=== PATIENT | female | born 1945 | race Caucasian/White ===

== ENCOUNTER 2020-03-05 21:01 | Emergency (ER) | payer MEDICARE, SELFPAY ==
--- NOTE | 2020-03-05 21:09 | PC.NURSE ---
nurse at bedside. pt via wc from registration. daughter at side.
[2020-03-05 21:22] VITALS: BP 173/86; PULSE 65; RESP 17; O2SAT 98; BMI 29.9
--- NOTE | 2020-03-05 21:34 | XR_ITS ---
PROCEDURE: XR LUMBAR SPINE MIN 4V CLINICAL INDICATION: PAIN Low back pain COMPARISON: CT CT ANGIOGRAM CHEST W CONTRAST from 06/30/2016 FINDINGS: No fracture or dislocation. No lytic or blastic change. There is normal mineralization. There is degenerative disc disease at L4-5 and L5-S1. There is 5 mm anterolisthesis of L3 on L4. Facet arthritic changes are present from L2-S1. There is mild thoracolumbar curvature convex left Other findings:Faint calcification noted in both upper quadrants and could be due to nephrolithiasis or vascular calcification. IMPRESSION: Degenerative changes lumbar spine as described above. Possible nephrolithiasis Dictated by: Celestino Mackay MD 03/06/2020 04:50 Celestino Mackay MD in [place] 03/06/2020 04:50
--- NOTE | 2020-03-05 21:34 | XR_ITS ---
PROCEDURE: XR TIBIA FIBULA LT 2V CLINICAL INDICATION: PAIN COMPARISON: No exams were available for comparison FINDINGS: No fracture or dislocation. No lytic or blastic change. There is normal mineralization. The joint spaces are well-preserved. No significant degenerative/arthritic changes. No erosive changes evident. Other findings:There are 2 well-circumscribed calcific densities at the tip of the medial malleolus consistent with old avulsion fracture or ununited ossification center. IMPRESSION: No acute findings. Dictated by: Celestino Mackay MD 03/06/2020 04:46 Celestino Mackay MD in [place] 03/06/2020 04:46
--- NOTE | 2020-03-05 21:34 | XR_ITS ---
PROCEDURE: XR KNEE LT 3V CLINICAL INDICATION: PAIN Pain COMPARISON: CR XR TIBIA FIBULA LT 2V from 03/05/2020 FINDINGS: No fracture or dislocation. No lytic or blastic change. There is normal mineralization. The joint spaces are well-preserved. No significant degenerative/arthritic changes. No erosive changes evident. Other findings:There is an old avulsion fracture at the tip of the medial malleolus. IMPRESSION: No acute findings. Dictated by: Celestino Mackay MD 03/06/2020 04:45 Celestino Mackay MD in [place] 03/06/2020 04:45
--- NOTE | 2020-03-05 21:54 | HMH.EDLOEX ---
ED Disposition Clinical Impression: Lumbar radicular pain Knee pain, left Qualifiers: Chronicity: acute Qualified Code(s): M25.562 - Pain in left knee Disposition: Home, Self-Care Condition on Discharge: Good Instructions: DI for Lumbar Radiculopathy Additional Instructions: call dr schaefer in am for follow up Prescriptions: predniSONE [Prednisone 20mg Tab] 20 mg PO BID #10 tab Transmission Status: Pending to [id number] Referrals: Juan Schaefer MD [Primary Care Provider] - - Critical Care Critical Care Time: No Attestation: On 03/05/20, the high probability of a clinically significant, sudden or life threatening deterioration of the following system(s) required my full and direct attention, intervention and personal management. The time I documented below is in addition to time spent performing reported procedures but includes the following listed in this critical care notation. Medical Decision Making - Medical Records Medical records reviewed: Yes: I reviewed the patient's medical records. - Emanuel Inquiry Pt receiving controlled substance: No Vital Signs: 03/05/20 21:22 03/05/20 22:03 03/05/20 22:39 Temperature 98.3 F Temperature Source Oral Pulse Rate 62 Pulse Rate [Right Brachial] 65 62 Respiratory Rate 17 16 17 Blood Pressure 151/87 H Blood Pressure [Right Arm] 173/86 H 154/82 H Blood Pressure Mean [Right Arm] 115 106 Blood Pressure Source Automatic Cuff Blood Pressure Source [Right Arm] Automatic Cuff Automatic Cuff Blood Pressure Position Sitting Blood Pressure Position [Right Arm] Sitting Sitting 02 Sat by Pulse Oximetry 98 96 Oxygen Delivery Method Room Air Room Air Room Air - Lab Data Lab results reviewed: Yes: I reviewed the patient's lab results. Lab Results 03/05/20 21:40: WBC 7.5, RBC 4.69, Hgb 14.3, Hct 44.4, MCV 94.7, MCH 30.6, MCHC 32.3, RDW 13.1, Plt Count 296, MPV 7.7, Neut % (Auto) 56.9, Lymph % (Auto) 30.4, [place] % (Auto) 6.6, Eos % (Auto) 5.6, Baso % (Auto) 0.5, Neut # (Auto) 4.3, Lymph # (Auto) 2.3, [place] # (Auto) 0.5, Eos # (Auto) 0.4, Baso # (Auto) 0.0, ESR 17 03/05/20 21:40: Sodium 138, Potassium 4.1, Chloride 102, Carbon Dioxide 25, Anion Gap 15.1 H, BUN 18 H, Creatinine 1.00, Estimated Creat Clear 63, Estimated GFR 54 L, Est GFR ( Amer) 65, Glucose 108 H, Calcium 10.0, Total Bilirubin 0.7, AST 31, ALT 17, Alkaline Phosphatase 55, C-Reactive Protein 3.4, Total Protein 7.7, Albumin 4.5, Globulin 3.2, Albumin/Globulin Ratio 1.4 Result diagrams: 03/05/20 21:40 03/05/20 21:40 Orders (Tests/Meds): ED MEDICATIONS Discontinued Medications Generic Name Dose Route Start Last Admin Trade Name Freq PRN Reason Stop Dose Admin Ketorolac Tromethamine 30 mg 03/05/20 21:39 03/05/20 21:42 Ketorolac 30mg/Ml Vial IV 03/05/20 21:40 30 mg ONCE ONE Administration Methylprednisolone Sodium Succinate 125 mg 03/05/20 21:45 03/05/20 21:48 Methylprednisolone Sod Succ 125mg Vial IV 03/05/20 21:46 125 mg ONCE ONE Administration ORDERS Category Date Time Status XR knee LT 3V Stat Exams 03/05/20 21:34 Taken XR lumbar spine min 4V Stat Exams 03/05/20 21:34 Taken XR tibia fibula LT 2V Stat Exams 03/05/20 21:34 Taken - Radiology Data #1 Image(s): L-Spine, Knee, Tib/Fib Image Reviewed: Yes I reviewed the patient's radiology image Preliminary Findings: No Fracture Seen (djd changes ) Lower Extremity Injury HPI - General Chief Complaint: Extremity Injury, Lower Stated Complaint: L Leg pain, has gotten worse Time Seen by Provider: 03/05/20 21:45 Mode of Arrival: Wheelchair Source of Information: Patient, Relative, Medical Record Limitations: No Limitations Description of Symptoms (Recalled from ER Triage Doc. by RN): PATIENT REPORTS LEFT KNEE PAIN THAT RADIATES DOWN HER NOLASCO AND UP HER THIGH. PAIENT REPORTS SHE HAS HAD THIS PAIN OFF AND ALL SINCE THE SUMMER BUT IT HAS GOTTEN SEVERE WITHIN THE LAST
[2020-03-05 21:57] LABS: Basophils % 0.5 % (0.1-2.0); Chloride 102 mmol/L (98-107); Eosinophils # 0.4 K/mm3 (0.0-0.4); Eosinophils % 5.6 % (0.1-12.0); Hematocrit 44.4 % (37.0-47.0); Hemoglobin 14.3 g/dL (12.2-16.2); Lymphocytes # 2.3 K/mm3 (0.7-4.5); Lymphocytes % 30.4 % (10-50); Mean Corpuscular HGB Conc 32.3 g/dL (31.8-35.4); Mean Corpuscular Hemoglobin 30.6 pg (27.0-31.2); Mean Corpuscular Volume 94.7 fl (81-99); Mean Platelet Volume 7.7 fl (7.4-10.4); Monocytes # 0.5 K/mm3 (0.1-1.0); Monocytes % 6.6 % (1.7-9.3); Neutrophils # 4.3 K/mm3 (1.8-7.8); Neutrophils % 56.9 % (37.0-80.0); Platelet Count 296 K/mm3 (142-424); Red Blood Count 4.69 M/mm3 (4.20-5.40); Red Cell Distribution Width 13.1 % (11.5-17.5); White Blood Count 7.5 K/mm3 (4.8-10.8)
[2020-03-05 21:58] LABS: Potassium 4.1 mmoL/L (3.5-5.1); Sodium 138 mmol/L (136-145)
[2020-03-05 22:00] LABS: Alanine Aminotransferase 17 U/L (12-78); Alkaline Phosphatase 55 U/L (38-126); Anion Gap 15.1 mEq/L (5-15); Aspartate Amino Transferase 31 U/L (14-36); Bilirubin,Total 0.7 mg/dl (0.2-1.3); Blood Urea Nitrogen 18 mg/dl (7-17); Carbon Dioxide 25 mmol/L (22.0-30.0); Creatinine Clearance Estimated 63 mL/min (50-200); Estimated Glomerular Filt Rate 54 ml/min (>60); GFR (African American) 65 ML/MIN (>60)
[2020-03-05 22:01] LABS: Albumin Level 4.5 g/dl (3.5-5.0); Albumin/Globulin Ratio 1.4 (1.1-1.8); Globulin 3.2 g/dL (1.3-3.2); Glucose 108 mg/dl (74-100); Total Protein,Serum 7.7 g/dl (6.3-8.2)
[2020-03-05 22:03] VITALS: BP 154/82; PULSE 62; RESP 16; O2SAT 96
[2020-03-05 22:06] LABS: C-Reactive Protein 3.4 mg/L (0-4)
[2020-03-05 22:25] LABS: Erythrocyte Sedimentation Rate 17 mm/hr (0-30)
[2020-03-05 22:39] VITALS: BP 151/87; PULSE 62; RESP 17; TEMP 36.8; O2SAT 96
== END 2020-03-05 22:53 | disposition home or self-care (01) ==
PROVIDERS: Emergency Provider Emergency Medicine; PCP Internal Medicine Adolescent Medicine
DX: M54.16 Radiculopathy, lumbar region (principal); M25.562 Pain in left knee
CPT/HCPCS: 72110; 73562; 73590; 80053; 85025; 85651; 86140; 96374; 96375; 99283

== ENCOUNTER → 2020-03-08 10:38 | Outpatient (CLI) | payer MEDICARE, SELFPAY ==
--- NOTE | 2020-03-08 10:46 | MR_ITS ---
PROCEDURE: MR LUMBAR SPINE WO CON CLINICAL INDICATION: LEFT SIDED LOW BACK PAIN Severe left-sided low back pain radiating into the left leg COMPARISON: CR XR LUMBAR SPINE MIN 4V from 03/05/2020 TECHNIQUE: Standard multiplanar multiecho sequences are performed without contrast. 3-D MIP and myelographic images are also rendered and reviewed FINDINGS: There is normal alignment. The spinal cord ends at the L1-L2 level. T12-L1: Minimal bulging disc. L1-L2: There is degenerative disc disease with bulging disc and a small broad-based central disc protrusion along with facet and ligamentum hypertrophy causing mild bilateral lateral recess narrowing and mild bilateral foraminal narrowing. L2-L3: Degenerative disc disease with bulging disc along with moderate to severe facet and ligamentum hypertrophy with severe bilateral lateral recess narrowing moderate right and mild left foraminal narrowing with canal stenosis. A Schmorl's node is present along the superior endplate of L3. L3-L4: 5 mm anterolisthesis of L3 with bulging disc and facet and ligamentum hypertrophy with severe bilateral lateral recess narrowing and moderate to severe bilateral foraminal narrowing with canal stenosis. L4-5: Degenerative disc disease with bulging disc which is eccentric toward the right. There is mild right foraminal narrowing. There is moderate to severe left-sided foraminal narrowing. L5-S1: Mild degenerative disc disease with mild bulging disc and facet hypertrophic change with mild bilateral foraminal narrowing. Incidental note is made of a prominent bilateral renal pelvis right greater than left. IMPRESSION: Multilevel lumbar spondylosis as detailed above with bulging disc, degenerative disc disease, facet and ligamentum hypertrophy with varying degrees of lateral recess and foraminal narrowing and canal stenosis. Please see above for detailed description at each level. Dictated by: Celestino Mackay MD 03/08/2020 13:45 Celestino Mackay MD in [place] 03/08/2020 13:45
== END ==
PROVIDERS: PCP Internal Medicine Adolescent Medicine; Visit Provider Internal Medicine Adolescent Medicine
DX: M54.42 Lumbago with sciatica, left side (principal)
CPT/HCPCS: 72148; 76376

== ENCOUNTER → 2020-03-26 08:50 | Outpatient (POV) | payer MEDICARE, SELFPAY ==
[2020-03-26 09:35] VITALS: BP 126/79; PULSE 67; RESP 18; TEMP 36.7; O2SAT 99; BMI 29.9
--- NOTE | 2020-03-26 09:39 | HMH.PMCON ---
Assessment and Plan (1) Degenerative disc disease Status: Chronic Qualifiers: Spinal region: lumbar Qualified Code(s): M51.36 - Other intervertebral disc degeneration, lumbar region Category: Medical (2) Lumbar radicular pain Status: Chronic Category: Medical Code(s): M54.16 - Radiculopathy, lumbar region - Assessment and plan all Dx Assessment and Plan for all problems:: We will schedule the patient for an L4-L5 lumbar epidural steroid injection for the radicular pain she is having on her left side. Patient has been instructed to call the office if she has any issues prior to her next appointment. I will follow-up with her after this reassess her symptoms at that time. Dr. Eaton has reviewed this note and agrees with this plan of care. This note was dictated using voice recognition software and may contain errors or omissions HPI - Data of Consult Consult date: 03/26/20 Requesting Physician: Natalie Peres APRN Primary Care Provider: Juan Schaefer MD - Consult Narrative Reason for consult: , Left leg pain History of present illness: Ms. Seaman is a 74 year old female who presents today for consultation in regard to her left leg pain. Patient has left leg pain radiating down to her foot. She is had this for several weeks however it is improving somewhat. She was on a short round of oral steroids which did help. Patient had an MRI showing ligamentum flavum hypertrophy along with severe foraminal stenosis on the left side at L4-L5. Patient and I discussed epidural injection she would like to move forward with this. Patient has tried and failed medications, anti-inflammatories. Patient potentially could be a minimally invasive lumbar decompression candidate to we discussed this briefly. She would like to see how she does with this epidural injection and then decide. I do believe that is appropriate. Patient is not on any anticoagulation therapy. She rates her pain today a 5 out of 10. CC: Natalie Peres APRN [facility] History I have reviewed the patient's past medical history: Yes *Have you ever received a pneumonia vaccine?: Yes *Have you received a flu vaccine this season?: Yes - *Social History *Occupational Status:: retired *Travel in the last 8 weeks: None Family Hx:: No significant family history, Non-contributory Review of Systems - Review of Systems ROS General: no recent weight change, no fever, no sleep disturbances Respiratory: no cough, no shortness of air, no recurring pulmonary infections Cardiovascular/Peripheral Vascular: No chest pain, No palpitations, no edema, no shortness of breath. Gastrointestinal: no new onset incontinence, normal bowel movements reported Genitourinary: no new onset incontinence Musculoskeletal: left leg pain Psychiatric: normal mood/ affect Neurological: [denies new onset weakness in extremities], [denies new onset balance issues] Meds Home Medications Medication Instructions Recorded Confirmed Type Bisoprolol/Hydrochlorothiazide 1 each PO DAILY 03/26/20 03/26/20 History [Bisoprolol-Hctz 2.5-6.25 mg Tb] Calcium Carbonate [Calcium] 500 mg PO DAILY 03/26/20 03/26/20 History D3/Red Wine/Resveratrol/Malt 1,000 iunits PO DAILY 03/26/20 03/26/20 History [Super-D3+ Softgel] Levothyroxine Sodium 50 mcg PO DAILY 03/26/20 03/26/20 History [Levothyroxine 50mcg (0.05mg) Tab] Loratadine 10 mg PO DAILY 03/26/20 03/26/20 History Losartan/Hydrochlorothiazide 1 each PO DAILY 03/26/20 03/26/20 History [Losartan-Hctz 50-12.5 mg Tab] Multivitamin [Multi-Vitamin Plain] 0 each PO DAILY 03/26/20 03/26/20 History [place]-3S/Dha/Epa/Fish Oil [Fish 1 each PO DAILY 03/26/20 03/26/20 History Oil 1,000 mg Softgel] Vitamin B Complex [B Complex] 1 each PO DAILY 03/26/20 03/26/20 History Allergies Allergy/AdvReac Type Severity Reaction Status Date / Time No Known Allergies Allergy Verified 03/26/20 11:25 Objective Brice
== END ==
PROVIDERS: PCP Internal Medicine Adolescent Medicine; Visit Provider Clinical Nurse Specialist Family Health
DX: M51.16 Intervertebral disc disorders with radiculopathy, lumbar region (principal)
CPT/HCPCS: 99202

== ENCOUNTER → 2020-03-30 10:49 | Day surgery (SDC) | payer MEDICARE, SELFPAY ==
[2020-03-30 11:48] VITALS: BP 155/76; PULSE 64; RESP 18; TEMP 36.1; O2SAT 99; BMI 29.9
[2020-03-30 12:09] VITALS: BP 125/88; PULSE 85; RESP 18
--- NOTE | 2020-03-30 12:18 | HMH.PMPROC ---
- Procedure Date: 03/30/20 Time: 12:18 Anesthesiologist:: Matteo Eaton MD Complications:: None Pre-procedure Diagnosis:: Degenerative disc disease of lumbar spine with lumbar radiculopathy symptoms Post-procedure Diagnosis:: Same Indications for Procedure:: This patient is a pleasant 74-year-old white female who we are treating for low back pain with lumbar radicular symptoms. Most of her pain is in the low back radiating to the left leg. She has pain all the way down to her left knee. She did have pain all the way to her left gant however it is localized now to the knee area. We will do a lumbar pleural steroid injection today to see if this helps take care of her pain symptoms. Procedure Details:: Lumbar epidural steroid injection under fluoroscopy Informed consent was obtained and the risk and benefits of the procedure was explained to the patient. The patient was taken to the procedure room. The patient was placed prone on the procedure table. The patient was prepped and draped in sterile fashion. C-arm fluoroscopy was used to view the lumbar spine. Skin and subcutaneous tissues were anesthetized using lidocaine. I placed an 18-gauge epidural needle and advanced into the L4-L5 interspace using fluoroscopic guidance and [id number] to air. After confirmation of needle placement in the epidural space with dye I injected 2 mL of lidocaine 1.5% with Depo-Medrol 80 mg. Patient tolerated the procedure well with no complications. Plan and Disposition:: We will follow-up with her in 2 weeks. Will reevaluate symptoms at that time.
== END ==
PROVIDERS: PCP Internal Medicine Adolescent Medicine; Visit Provider Anesthesiology
DX: M51.16 Intervertebral disc disorders with radiculopathy, lumbar region (principal); I10 Essential (primary) hypertension; E03.9 Hypothyroidism, unspecified; Z87.39 Personal history of other diseases of the musculoskeletal system and connective tissue; Z79.899 Other long term (current) drug therapy
CPT/HCPCS: 62323; J1040; Q9966

== ENCOUNTER → 2020-04-19 09:09 | Outpatient (POV) | payer MEDICARE, SELFPAY ==
[2020-04-19 09:55] VITALS: BP 135/88; PULSE 85; RESP 18; TEMP 36.6; O2SAT 98; BMI 27.3
--- NOTE | 2020-04-19 10:08 | P.CONS_ITS ---
[facility] Pain Management SOAP Note Subjective:: Patient is a 74-year-old white female who presents today for follow-up after a lumbar epidural steroid injection. Patient has been having pain primarily in her low back with radiation into her left leg. The pain does go to her left knee. She says it has recently started traveling into the left gant area as well. She reports that she got 80% relief with her lumbar epidural steroid injection. She says that she only has pain with specific movements now. Her pain is a 2 out of 10 today. She is also taking diclofenac 75 mg 1 tablet p.o. twice daily that was prescribed by Dr. ANITA Olivares. Her last session of physical therapy is tomorrow. Patient says she has done well overall. Review of Systems General: No recent weight changes, no fever, no sleep disturbances Respiratory: No cough, no shortness of air, no recurring pulmonary infections Cardiovascular/peripheral vascular: No chest pain, no palpitations, no edema, no shortness of breath Gastrointestinal: No new onset incontinence, normal bowel movements reported Genitourinary: No new onset incontinence Musculoskeletal: Low back pain Psychiatric: Normal mood/affect Neurological: [Denies weakness in extremities], [denies balance issues] Objective:: Physical exam General: Alert and oriented x3, no acute distress, pleasant and cooperative, [on room air] Lungs: Respirations even and unlabored, symmetrical chest expansion Eyes: PERRL Musculoskeletal: Flexion and extension of lumbar spine somewhat guarded secondary to pain, deep tendon reflexes normal, strength in upper and lower extremities [5/5], [abnormal gait noted] Neurological: Speech clear, gluer and wedger equal, no gross sensory deficit Assessment:: Degenerative disc disease lumbar spine with lumbar radiculopathy symptoms Plan:: Overall, the patient is doing well following her injection. She would like to follow-up with us in 1 month for reevaluation of her symptoms. She has been instructed to contact clinic if she has any concerns before next appointment. The patient and I specifically discussed risk factors for COVID19. These risks include, but are not limited to age greater than 60, heart or lung disease, diabetes, immunosuppression, and travel. We also discussed NSAIDs may worsen COVID19 infection or symptoms. Patient should not use NSAIDs to treat COVID19 signs or symptoms. Patient was also informed that any type of corticosteroid of any form (oral or injection) will decrease the patient's immune system response and may increase the likelihood of COVID19 infection [address] symptoms[address]. Eaton has reviewed this note and agrees with this plan of care. This note was dictated using voice recognition software and make contain errors or omissions. [facility] History I have reviewed the patient's past medical history: Yes Medical History: Reports:: Hyperlipidemia, Hypertension Denies:: Cancer, Diabetes Mellitus Type 1, Diabetes Mellitus Type 2, MRSA, Seizures *Have you ever received a pneumonia vaccine?: Yes *Have you received a flu vaccine this season?: Yes Other Medical History: Reports: Hypothyroidism, Thyroid Disease Laterality Cases: Left: Lumpectomy Other Surgeries: Yes: Hysterectomy-Partial, Other (back surgery discectomy L4/5) Amputation: No Fractures: No - *Social History Alcohol Intake: never *Occupational Status:: other Housing: house Household Members: other *Travel in the last 8 weeks: None Family Hx:: No significant family history, Non-contributory
== END ==
PROVIDERS: PCP Internal Medicine Adolescent Medicine; Visit Provider Clinical Nurse Specialist Family Health
DX: M51.16 Intervertebral disc disorders with radiculopathy, lumbar region (principal)
CPT/HCPCS: 99212

== ENCOUNTER 2020-04-20 14:00 | Outpatient (RCR) | payer MEDICARE, SELFPAY ==
--- NOTE | 2020-03-15 18:18 | HMH.PTOPEV ---
PT Outpatient Evaluation Rehab PT Outpatient Evaluation Start: 03/15/20 17:02 Freq: Status: Active Protocol: Document 03/15/20 17:59 KRISTIN (Rec: 03/15/20 18:18 KRISTIN [id number]) Electronically Signed By Yeison Vilchis, PT 03/15/20 17:59 Outpatient Therapy Subjective History Subjective History Patient is a 74 year old female presenting to outpatient PT with reports of chronic LBP with BLE radicular symptoms L>R of insidious onset starting approximately 1 month ago. Symptom increased exponentially starting approximatley 2 weeks ago resulting in a visit to the ED . Main complaint is pain to the R knee, gant and foot. Most recent MRI indicates multi-level disc bulges, DDD and L 3/4 anterolisthesis. Patient reports hx of lumbar discectomy L4/5 approx 20 years ago. Other comorbidities include hx of HTN, R meniscus tear and mulitple abdominal surgeries. Chief Complaint Pain,Paresthesia,Weakness Symptom Type Ache,Throb,Dull Symptoms Relieved By Rest/Positioning,Heat,OTC Meds ,Prescription Meds Symptoms Aggravated By Standing,Bending/Stooping, Physical Activity,Walking, Lifting Prior Functional Limitations None Current Functional Limitations Housework,Standing,Squatting, Recreation Activity,Walking, Stairs,Balance,Bending/ Stooping Symptom Description Constant but Variable Level of pain today (0-10) 6 Pain scale - at its best (0-10) 6 Pain scale - at its worst (0-10) 10 Lumbopelvic Eval Posture Thoracic Spine Posture Standing Position Neutral Lumbar Spine Posture Standing Position Neutral Palapation tenderness bilateral buttock tenderness Yes: 2/4 Lumbar/Sacral Palpation Findings Tenderness Accessory Movement L2 bilateral L3 bilateral L4 bilateral L5 bilateral S1 bilateral Range of Motion Lumbar Spine Active Flexion Range of 82 Motion (degrees) Lumbar Spine Active Extension Range of 10
== END 2020-04-20 14:05 | disposition home or self-care (01) ==
LOC: PT 14:00
PROVIDERS: PCP Internal Medicine Adolescent Medicine; Visit Provider Internal Medicine Adolescent Medicine
DX: M54.42 Lumbago with sciatica, left side (principal)
CPT/HCPCS: 97010; 97012; 97014; 97035; 97110; 97163; 97535; G0283

== ENCOUNTER 2020-05-04 11:15 | Emergency (ER) | payer MEDICARE, SELFPAY ==
--- NOTE | 2020-05-04 11:11 | ECG_ITS ---
APPROVED REPORT Exam: Resting ECG HR:109 bpm ECG Measurements Heart Rate 109 AXES QRSd 82 QRS 51 QT 346 T 58 QTc 465 Conclusion Atrial fibrillation with rapid ventricular response Nonspecific ST abnormality Abnormal ECG Electronically signed by : Juan Schaefer, 05/04/2020 19:09:28
[2020-05-04 11:16] VITALS: BP 132/94; PULSE 170; RESP 18; TEMP 37; O2SAT 100; BMI 29.9
--- NOTE | 2020-05-04 11:19 | XR_ITS ---
PROCEDURE: XR CHEST PORTABLE CLINICAL HISTORY: CP Chest pain COMPARISON: CT CT ANGIOGRAM CHEST W CONTRAST from 06/30/2016 FINDINGS: The cardiomediastinal silhouette and pulmonary vascularity are within normal limits. The lungs are clear without infiltrates, suspicious nodules, or pleural effusions. No acute bony abnormalities. IMPRESSION: No acute findings. Dictated by: Celestino Mackay MD 05/04/2020 12:31 Celestino Mackay MD in [place] 05/04/2020 12:31
[2020-05-04 11:25] VITALS: BP 90/58; PULSE 167; O2SAT 100
[2020-05-04 11:31] LABS: Basophils # 0.1 K/mm3 (0-0.2); Basophils % 0.8 % (0.1-2.0); Eosinophils # 0.8 K/mm3 (0.0-0.4); Eosinophils % 8.6 % (0.1-12.0); Hematocrit 41.7 % (37.0-47.0); Hemoglobin 14.1 g/dL (12.2-16.2); Lymphocytes # 3.2 K/mm3 (0.7-4.5); Lymphocytes % 37.2 % (10-50); Mean Corpuscular HGB Conc 33.9 g/dL (31.8-35.4); Mean Corpuscular Hemoglobin 31.5 pg (27.0-31.2); Mean Corpuscular Volume 92.9 fl (81-99); Mean Platelet Volume 7.5 fl (7.4-10.4); Monocytes # 0.5 K/mm3 (0.1-1.0); Monocytes % 5.3 % (1.7-9.3); Neutrophils # 4.2 K/mm3 (1.8-7.8); Neutrophils % 48.1 % (37.0-80.0); Platelet Count 356 K/mm3 (142-424); Red Blood Count 4.49 M/mm3 (4.20-5.40); White Blood Count 8.7 K/mm3 (4.8-10.8)
[2020-05-04 11:34] LABS: Chloride 104 mmol/L (98-107)
[2020-05-04 11:35] VITALS: BP 96/75; PULSE 169
[2020-05-04 11:35] LABS: Potassium 3.3 mmoL/L (3.5-5.1); Sodium 139 mmol/L (136-145)
[2020-05-04 11:37] LABS: Blood Urea Nitrogen 19 mg/dl (7-17); Creatinine Clearance Estimated 63 mL/min (50-200); Estimated Glomerular Filt Rate 54 ml/min (>60); GFR (African American) 65 ML/MIN (>60)
[2020-05-04 11:38] LABS: Anion Gap 13.3 mEq/L (5-15); Calcium 10.4 mg/dl (8.4-10.2); Carbon Dioxide 25 mmol/L (22.0-30.0); Glucose 145 mg/dl (74-100)
--- NOTE | 2020-05-04 11:43 | CA_ITS ---
APPROVED REPORT EXAM: Comprehensive 2D, Doppler, and color-flow Echocardiogram Home Health Care Social Worker: Luann Guzman CRT Ht: 5 ft 5 in Wt: 180lbs BSA: 1.89 BP: 98/70 mmHg Indications: Atrial Fibrillation (new onset), Atrial Flutter, Hyperlipidemia, Hypertension/HDD 2D Dimensions Aortic Root 3.07 cm LVOT 1.69 cm (M/F) 1.5-2.5 M-Mode Dimensions RVDd 3.37 cm (0.9-2.6) LA Diam 2.92 cm (1.9-4.0) LVDd 4.23 cm (3.5-5.7) Ao Diam 3.84 cm (2.0-3.7) LVDs 2.97 cm (3.5-5.7) IVSd 1.68 cm (0.6-1.1) PWd 0.75 cm (0.6-1.1) EF (Teich) 57.20% FS 29.80% EDV (Teich) 79.90 mL ESV (Teich) 34.20 mL LV Diastology E Decel Time 153.00 (160-240 msec) E/A Ratio 0.44 MED E' 6.20 (< 7 cm/sec) E'/MED E' Ratio 5.85 (>14) LAT E' 5.40 (<10 cm/sec) E/LAT E' Ratio 6.72 (>14) Aortic Valve AO Peak GR. 8.90 mmHg Mitral Valve MV A Velocity 82.00 (40-130 cm/s) E/A Ratio 0.44 MV Decel. Time 153.00 (160-240 ms) Pulmonary Valve PV Peak Velocity 69.00 (50-150 cm/s) Tricuspid Valve TR P. Velocity 223.00 cm/s RAP Estimate 10.00 mmHg RVSP 29.90 mmHg Left Ventricle Left atrium is mildly enlarged, left ventricle is normal size, mild concentric left ventricular hypertrophy, visually estimated ejection fraction 55% with no regional wall motion abnormality, grade 1 diastolic dysfunction seen without tissue Doppler evidence of raise left atrial pressure. Right Ventricle Right atrium and right ventricle are mildly enlarged with normal contractility. Aortic Valve Aortic valve is minimally thickened and fibrosed, there is no aortic stenosis or aortic insufficiency. Mitral Valve Mitral valve is grossly normal, there is mild mitral regurgitation. Tricuspid Valve Tricuspid valve grossly normal, there is mild tricuspid regurgitation, calculated right ventricular systolic pressure is 29 mmHg. Pulmonic Valve Pulmonic valve is poorly visualized. Great Vessels Aortic root is normal size. Pericardium No significant pericardial effusion noted Conclusion 1. Mild biatrial enlargement, normal left ventricular size, mild concentric left ventricular hypertrophy, visually estimated ejection fraction 55% with no regional wall motion abnormality, grade 1 diastolic dysfunction seen without tissue Doppler evidence of raise left atrial pressure. 2. Mildly enlarged right ventricle with normal contractility. 3. Mild mitral and tricuspid regurgitation, calculated right ventricular systolic pressure 29 mmHg. 4. No significant pericardial effusion noted. Electronically signed by : Luis Antonio Quesada, 05/04/2020 13:21:20
--- NOTE | 2020-05-04 11:45 | PC.NURSE ---
Dr Andersen and Crescencio Qureshi at bedside at this time.
[2020-05-04 11:46] VITALS: BP 107/67; PULSE 82; O2SAT 99
[2020-05-04 11:51] LABS: Troponin I < 0.01 ng/ml (0.00-0.034)
[2020-05-04 11:58] LABS: T4 (Thyroxine) 12.1 ug/dl (5.53-11.0)
--- NOTE | 2020-05-04 12:02 | HMH.EDCP ---
ED Disposition Clinical Impression: A-fib Qualifiers: Atrial fibrillation type: paroxysmal Qualified Code(s): I48.0 - Paroxysmal atrial fibrillation Disposition: Home, Self-Care Condition on Discharge: Good Instructions: DI for Atrial Fibrillation Additional Instructions: fluids and use meds as directed and see card and pcp for follow up Prescriptions: bisoproloL fumarate [Bisoprolol 10mg Tablet] 10 mg PO DAILY #30 tab Transmission Status: Pending to [id number] Rivaroxaban [Xarelto 20mg Tablet*] 20 mg PO DAILY #30 tab Transmission Status: Pending to [id number] Referrals: Juan Schaefer MD [Primary Care Provider] - Andrey Andersen MD [Staff Physician] - - Critical Care Critical Care Time: No Attestation: On 05/04/20, the high probability of a clinically significant, sudden or life threatening deterioration of the following system(s) required my full and direct attention, intervention and personal management. The time I documented below is in addition to time spent performing reported procedures but includes the following listed in this critical care notation. Medical Decision Making - Medical Records Medical records reviewed: Yes: I reviewed the patient's medical records. - Emanuel Inquiry Pt receiving controlled substance: No Vital Signs: 05/04/20 11:16 05/04/20 11:25 05/04/20 11:35 Temperature 98.6 F Temperature Source Oral Pulse Rate [Radial] 170 H 167 H 169 H Respiratory Rate 18 Blood Pressure [Right Arm] 132/94 H 90/58 L 96/75 L Blood Pressure Mean [Right Arm] 106 68 82 Blood Pressure Source [Right Arm] Automatic Cuff Manual Cuff/ Palpation Automatic Cuff Blood Pressure Position [Right Arm] Sitting Sitting Sitting 02 Sat by Pulse Oximetry 100 100 Oxygen Delivery Method Room Air Room Air 05/04/20 11:46 05/04/20 12:38 Temperature Temperature Source Pulse Rate [Radial] 82 81 Respiratory Rate Blood Pressure [Right Arm] 107/67 L 118/81 Blood Pressure Mean [Right Arm] 80 93 Blood Pressure Source [Right Arm] Automatic Cuff Automatic Cuff Blood Pressure Position [Right Arm] Sitting Sitting 02 Sat by Pulse Oximetry 99 97 Oxygen Delivery Method Room Air Room Air - Lab Data Lab results reviewed: Yes: I reviewed the patient's lab results. Lab Results 05/04/20 11:22: WBC 8.7, RBC 4.49, Hgb 14.1, Hct 41.7, MCV 92.9, MCH 31.5 H, MCHC 33.9, RDW 14.0, Plt Count 356, MPV 7.5, Neut % (Auto) 48.1, Lymph % (Auto) 37.2, Stevens % (Auto) 5.3, Eos % (Auto) 8.6, Baso % (Auto) 0.8, Neut # (Auto) 4.2, Lymph # (Auto) 3.2, Stevens # (Auto) 0.5, Eos # (Auto) 0.8 H, Baso # (Auto) 0.1 05/04/20 11:22: Sodium 139, Potassium 3.3 L, Chloride 104, Carbon Dioxide 25, Anion Gap 13.3, BUN 19 H, Creatinine 1.00, Estimated Creat Clear 63, Estimated GFR 54 L, Est GFR ( Amer) 65, Glucose 145 H, Calcium 10.4 H, Troponin I < 0.01, TSH 1.24 05/04/20 11:22: Thyroxine (T4) 12.1 H 05/04/20 11:22: SARS-CoV-2 IgG Ab (Rapid) Negative, SARS-CoV-2 IgM Ab (Rapid) Negative Result diagrams: 05/04/20 11:22 05/04/20 11:22 Orders (Tests/Meds): ED MEDICATIONS Generic Name Dose Route Start Last Admin Trade Name Freq PRN Reason Stop Dose Admin Diltiazem HCl 100 mg/ Sodium 100 mls @ 5 mls/hr 05/04/20 11:30 05/04/20 12:20 Chloride IV 06/03/20 11:29 Not Given .Q20H JADEN Protocol Discontinued Medications Generic Name Dose Route Start Last Admin Trade Name Freq PRN Reason Stop Dose Admin Bisoprolol Fumarate 10 mg 05/04/20 12:15 05/04/20 12:20 Bisoprolol 5mg Tablet PO 05/04/20 12:16 10 mg ONCE ONE Administration Diltiazem HCl 15 mg 05/04/20 11:25 05/04/20 12:19 Diltiazem 25mg/5ml Vial IV 05/04/20 11:26 15 mg ONCE ONE Administration Potassium Chloride 40 meq 05/04/20 13:18 05/04/20 13:28 Potassium Chloride 20meq Tab PO 05/04/20 13:19 40 meq ONCE ONE Administration Rivaroxaban 20 mg 05/04/20 13:15 05/04/20 13:28 Rivaroxaban 10mg Tablet PO
[2020-05-04 12:09] LABS: Thyroid Stimulating Hormone 1.24 uIU/mL (0.465-4.68)
[2020-05-04 12:38] VITALS: BP 118/81; PULSE 81; O2SAT 97
--- NOTE | 2020-05-04 12:43 | PC.NURSE ---
Echo lab just left bedside. Pt complains of pain in her IV site on right arm. IV has infiltrated, removed it and placed dressing on it. Pt's nurse aware.
[2020-05-04 12:47] LABS: Coronavirus 19 IgG Antibody Negative (Negative); Coronavirus 19 IgM Antibody Negative (Negative)
--- NOTE | 2020-05-04 12:57 | PC.NURSE ---
pt up to restroom with daughters assistance
--- NOTE | 2020-05-04 13:12 | HMH.CNCARD ---
History of Present Illness Consult date: 05/04/20 Requesting physician: Edi Mendoza Consult reason: atrial fibrillation Chief complaint: A. fib with RVR Additional Medical History:: 1. Hypertension 2. History of hyperlipidemia 3. Hypothyroidism History of present illness: 74-year-old white female with history of hypertension was seen in the emergency department for 1 hour onset of rapid heart rate prior to arrival. Some chest tightness but no significant chest pain noted. No prior history of atrial fibrillation but on EKG in the ER she was noted to have A. fib with RVR. Patient was given an IV bolus of diltiazem with subsequent conversion to sinus rhythm. She relates recent changes in her blood pressure medication included discontinuation of Ziac. Home blood pressure readings were in the 80 to 100 mmHg systolic range. 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 No further testing reportedly needed. Initial troponin in the ER is normal. [facility] History Medical History: Reports:: Hyperlipidemia, Hypertension Denies:: Cancer, Diabetes Mellitus Type 1, Diabetes Mellitus Type 2, MRSA, Seizures *Have you ever received a pneumonia vaccine?: No *Have you received a flu vaccine this season?: No Other Medical History: Reports: Hypothyroidism, Thyroid Disease Laterality Cases: Left: Lumpectomy Other Surgeries: Yes: Hysterectomy-Partial, Other (back surgery discectomy L4/5) Amputation: No Fractures: No - *Social History Alcohol Intake: never *Occupational Status:: other Housing: house Household Members: other *Travel in the last 8 weeks: None Family Hx:: No significant family history, Non-contributory Meds Home Medications Medication Instructions Recorded Confirmed Type Bisoprolol/Hydrochlorothiazide 1 each PO DAILY 03/26/20 05/04/20 History [Bisoprolol-Hctz 2.5-6.25 mg Tb] Calcium Carbonate [Calcium] 500 mg PO DAILY 03/26/20 05/04/20 History D3/Red Wine/Resveratrol/Malt 1,000 iunits PO DAILY 03/26/20 05/04/20 History [Super-D3+ Softgel] Levothyroxine Sodium 50 mcg PO DAILY 03/26/20 05/04/20 History [Levothyroxine 50mcg (0.05mg) Tab] Losartan/Hydrochlorothiazide 1 each PO DAILY 03/26/20 05/04/20 History [Losartan-Hctz 50-12.5 mg Tab] Multivitamin [Multi-Vitamin Plain] 0 each PO DAILY 03/26/20 05/04/20 History Malo-3S/Dha/Epa/Fish Oil [Fish 1 each PO DAILY 03/26/20 05/04/20 History Oil 1,000 mg Softgel] Vitamin B Complex [B Complex] 1 each PO DAILY 03/26/20 05/04/20 History Diclofenac Sodium [Diclofenac 75mg 75 mg PO BID 05/04/20 05/04/20 History Tab] Allergies Allergy/AdvReac Type Severity Reaction Status Date / Time No Known Allergies Allergy Verified 03/30/20 11:48 Exam Vital signs and Labs for Last 24 Hours: Temp Pulse Resp BP Pulse Ox 98.6 F 81 18 118/81 97 05/04/20 11:16 05/04/20 12:38 05/04/20 11:16 05/04/20 12:38 05/04/20 12:38 Laboratory Results - last 24 hr 05/04/20 11:22: WBC 8.7, RBC 4.49, Hgb 14.1, Hct 41.7, MCV 92.9, MCH 31.5 H, MCHC 33.9, RDW 14.0, Plt Count 356, MPV 7.5, Neut % (Auto) 48.1, Lymph % (Auto) 37.2, Crane % (Auto) 5.3, Eos % (Auto) 8.6, Baso % (Auto) 0.8, Neut # (Auto) 4.2, Lymph # (Auto) 3.2, Crane # (Auto) 0.5, Eos # (Auto) 0.8 H, Baso # (Auto) 0.1 05/04/20 11:22: Sodium 139, Potassium 3.3 L, Chloride 104, Carbon Dioxide 25, Anion Gap 13.3, BUN 19 H, Creatinine 1.00, Estimated Creat Clear 63, Estimated GFR 54 L, Est GFR ( Amer) 65, Glucose 145 H, Calcium 10.4 H, Troponin I < 0.01, TSH 1.24 05/04/20 11:22: Thyroxine (T4) 12.1 H 05/04/20 11:22: SARS-CoV-2 IgG Ab (Rapid) Negative, SARS-CoV-2 IgM Ab (Rapid) Negative I & O for Last 24 hours: Intake & Output 05/02/20 05/03/20 05/04/20 05/05/20 11:59 11:59 11:59 11:59 Weight 180 lb - Constitutional no acute distress - *Routine HEENT Exam Head: Present: normocephalic Eye: Pr
[2020-05-04 13:48] VITALS: BP 118/81; PULSE 77; RESP 16; TEMP 36.6; O2SAT 98
== END 2020-05-04 13:49 | disposition home or self-care (01) ==
PROVIDERS: Emergency Provider Emergency Medicine; PCP Internal Medicine Adolescent Medicine
DX: I48.0 Paroxysmal atrial fibrillation (principal); R07.9 Chest pain, unspecified; E78.5 Hyperlipidemia, unspecified; I10 Essential (primary) hypertension; E03.9 Hypothyroidism, unspecified; Z01.84 Encounter for antibody response examination; Z90.49 Acquired absence of other specified parts of digestive tract; Z79.899 Other long term (current) drug therapy
CPT/HCPCS: 71045; 80048; 84436; 84443; 84484; 85025; 86328; 93005; 93306; 96374; 99283

== ENCOUNTER → 2020-05-16 09:39 | Outpatient (CLI) | payer MEDICARE, SELFPAY | PROVIDERS: PCP Internal Medicine Adolescent Medicine; Visit Provider Internal Medicine Adolescent Medicine | DX: I48.0 Paroxysmal atrial fibrillation (principal) | CPT/HCPCS: 93225; 93226 ==

== ENCOUNTER → 2020-05-24 09:30 | Outpatient (POV) | payer MEDICARE, SELFPAY ==
[2020-05-24 10:02] VITALS: BP 138/85; PULSE 74; RESP 18; TEMP 36.6; O2SAT 98; BMI 29.7
--- NOTE | 2020-05-24 12:38 | HMH.PAINSOAP ---
[facility] Pain Management SOAP Note Subjective:: Patient is 74-year-old white female who presents today for follow-up. Since her last visit she has been diagnosed with A. fib and put on Xarelto. Patient has had epidurals before with good relief however her pain is different. She is having left-sided SI joint pain. She is also having difficulty with standing and walking. She may have some neurogenic claudication symptomology. She rates her pain today 5 out of 10 she was on diclofenac however she is started anticoagulation therapy. We discussed switching to tramadol she is agreeable. [facility] #[id number] reviewed and appropriate. Patient has a positive left SI joint compression test, Jodi's test, distraction test, Lino test. ROS General: no recent weight change, no fever, no sleep disturbances Respiratory: no cough, no shortness of air, no recurring pulmonary infections Cardiovascular/Peripheral Vascular: No chest pain, No palpitations, no edema, no shortness of breath. Gastrointestinal: no new onset incontinence, normal bowel movements reported Genitourinary: no new onset incontinence Musculoskeletal: Back pain, SI joint pain Psychiatric: normal mood/ affect, [denies depression], [denies anxiety] Neurological: [denies new onset weakness in extremities], [denies new onset balance issues] Objective:: Physical Exam General: Alert and oriented x3, no acute distress, pleasant and cooperative, [on room air] Lungs: Resps E/U, Symmetrical chest expansion, Eyes: PERRL Musculoskeletal: Flexion and extension of lumbar spine somewhat guarded secondary to pain, deep tendon reflexes normal, strength in upper and lower extremities [5/5], [abnormal gait noted] Neurological: speech clear, strawhat blocking operator equal, no gross sensory deficits Assessment:: Degenerative disc disease lumbar spine lumbar radiculopathy, sacroiliitis Plan:: We will set the patient up for left-sided SI joint injection. We will also switch her from diclofenac to tramadol 50 mg 1 p.o. 3 times daily. Patient is on Xarelto she does not have to come off prior to her injection. I will follow-up with her afterwards reassess her symptoms at that time she has been instructed to call the office if she has any issues prior to her next appointment. Dr. Eaton has reviewed this note and agrees with this plan of care. This note was dictated using voice recognition software and may contain errors or omissions [facility] History I have reviewed the patient's past medical history: Yes Medical History: Reports:: Hyperlipidemia, Hypertension Denies:: Cancer, Diabetes Mellitus Type 1, Diabetes Mellitus Type 2, MRSA, Seizures *Have you ever received a pneumonia vaccine?: Yes *Have you received a flu vaccine this season?: Yes Other Medical History: Reports: Hypothyroidism, Thyroid Disease Laterality Cases: Left: Lumpectomy Other Surgeries: Yes: Hysterectomy-Partial, Other (back surgery discectomy L4/5) Amputation: No Fractures: No - *Social History Smoking Status: Never smoker Alcohol Intake: never *Occupational Status:: other Housing: house Household Members: other *Travel in the last 8 weeks: None Family Hx:: No significant family history, Non-contributory
== END ==
PROVIDERS: Visit Provider Clinical Nurse Specialist Family Health
DX: M51.16 Intervertebral disc disorders with radiculopathy, lumbar region (principal); M46.1 Sacroiliitis, not elsewhere classified
CPT/HCPCS: 99212; G0463

== ENCOUNTER 2020-06-01 10:02 | Day surgery (SDC) | payer MEDICARE, SELFPAY ==
[2020-06-01 10:47] VITALS: BP 117/72; PULSE 58; RESP 18; TEMP 36; O2SAT 99; BMI 30.5
--- NOTE | 2020-06-01 11:29 | HMH.PMPROC ---
- Procedure Date: 06/01/20 Time: 11:29 Anesthesiologist:: Matteo Eaton MD Complications:: None Pre-procedure Diagnosis:: Sacroiliitis Post-procedure Diagnosis:: Same Indications for Procedure:: This patient is a pleasant 74-year-old white female who we are treating for low back pain and left hip pain. She is currently on Xarelto. She has had epidurals in the past with good relief of her pain symptoms. She is tender over left SI joint. She is positive Jodi's test on left side. She has a positive Lino test on left side. She has positive SI joint compression test on left side. We will do a left SI joint injection under fluoroscopy today to help her with her pain symptoms. Procedure Details:: Left SI joint injection under fluoroscopy Informed consent was obtained and the risks and benefits of the procedure was explained to the patient. Patient was taken to the procedure room. Patient was placed prone on the procedure table. The left hip was prepped using ChloraPrep. The skin and subcutaneous tissues were anesthetized using lidocaine. I placed a 22-gauge spinal needle into the inferior aspect of the left SI joint. Needle placement was confirmed with dye. After this we injected 5 mL bupivacaine 0.25% and Depo-Medrol 40 mg into the left SI joint. The patient tolerated the procedure well with no complication. Plan and Disposition:: We will follow-up with her in 2 weeks. Will reevaluate symptoms at that time.
[2020-06-01 11:37] VITALS: BP 118/78; PULSE 84; RESP 18
[2020-06-01 11:38] VITALS: BP 119/79; PULSE 85; RESP 18; O2SAT 98
[2020-06-01 11:55] VITALS: BP 130/71; PULSE 55; RESP 20; O2SAT 99
== END 2020-06-01 11:55 | disposition home or self-care (01) ==
LOC: SC.PAINP 10:04
PROVIDERS: PCP Internal Medicine Adolescent Medicine; Visit Provider Anesthesiology
DX: M46.1 Sacroiliitis, not elsewhere classified (principal); M54.5 Low back pain; I10 Essential (primary) hypertension; I48.91 Unspecified atrial fibrillation; E78.5 Hyperlipidemia, unspecified; E07.9 Disorder of thyroid, unspecified; F41.9 Anxiety disorder, unspecified; Z79.01 Long term (current) use of anticoagulants; Z79.899 Other long term (current) drug therapy
CPT/HCPCS: 27096; G0260; J1040; Q9966

== ENCOUNTER → 2020-06-21 10:50 | Outpatient (POV) | payer MEDICARE, SELFPAY ==
[2020-06-21 11:20] VITALS: BP 121/71; PULSE 68; RESP 18; TEMP 36.1; O2SAT 98; BMI 31.6
--- NOTE | 2020-06-21 13:23 | P.CONS_ITS ---
[facility] Pain Management SOAP Note Subjective:: Pleasant 74-year-old white female presents today for follow-up after SI joint injection. Patient had a significant increase in pain. Patient had terrible muscle spasms and was unable to sleep. Patient is quite tearful today thinking back on her time. She states that at day 12 she had no pain day 13 she had low back pain which was achy and throbbing by day 15 everything got worse patient tried heat and ice with no relief. Day 18 she had significant spasms radiating into her left hip and buttocks patient did state that she did take groceries out of her car at that time. Patient's daughter who is a nurse gave her both Flexeril Lortab and Percocet. Patient states she is having charley horse-like pain that grabs her. Patient is doing much better today rating her pain a 2 out of 10. Patient is stop the tramadol. She is going to start Tylenol arthritis. I also discussed giving her a prescription of methocarbamol if this happens again. Patient is agreeable. ROS General: no recent weight change, no fever, no sleep disturbances Respiratory: no cough, no shortness of air, no recurring pulmonary infections Cardiovascular/Peripheral Vascular: No chest pain, No palpitations, no edema, no shortness of breath. Gastrointestinal: no new onset incontinence, normal bowel movements reported Genitourinary: no new onset incontinence Musculoskeletal: Back pain, leg pain Psychiatric: normal mood/ affect Neurological: [denies new onset weakness in extremities], [denies new onset jong nce issues] Objective:: Physical Exam General: Alert and oriented x3, no acute distress, pleasant and cooperative, [on room air] Lungs: Resps E/U, Symmetrical chest expansion, Eyes: PERRL Musculoskeletal: Flexion and extension of lumbar spine somewhat guarded secondary to pain, deep tendon reflexes normal, strength in upper and lower extremities [5/5], [abnormal gait noted] Neurological: speech clear, disbursement clerk equal, no gross sensory deficits Assessment:: Sacroiliitis, degenerative disc disease, lumbar radiculopathy, back pain Plan:: We will give the patient prednisone 20 mg 1 p.o. twice daily for 5 days and methocarbamol 500 mg up to twice a day. This is both just in case she has increase in pain. I will follow-up with her in 2 weeks if she has any more episodes of pain I am going to order her a new MRI. Patient's been instructed to call the office if she has any issues. Dr. Eaton has reviewed this note and agrees with this plan of care. This note was dictated using voice recognition software and may contain errors or omissions [facility] History I have reviewed the patient's past medical history: Yes Medical History: Reports:: Hyperlipidemia, Hypertension Denies:: Cancer, Diabetes Mellitus Type 1, Diabetes Mellitus Type 2, MRSA, Seizures *Have you ever received a pneumonia vaccine?: Yes *Have you received a flu vaccine this season?: Yes Other Medical History: Reports: Hypothyroidism, Thyroid Disease Laterality Cases: Left: Lumpectomy Other Surgeries: Yes: Hysterectomy-Partial, Tubal Ligation, Other (back surgery discectomy L4/5) Amputation: No Fractures: No - *Social History Smoking Status: Never smoker Alcohol Intake: never *Occupational Status:: other Housing: house Household Members: other *Travel in the last 8 weeks: None Family Hx:: No significant family history, Non-contributory
== END ==
PROVIDERS: PCP Internal Medicine Adolescent Medicine; Visit Provider Clinical Nurse Specialist Family Health
DX: M46.1 Sacroiliitis, not elsewhere classified (principal); M51.16 Intervertebral disc disorders with radiculopathy, lumbar region
CPT/HCPCS: 99212; G0463

== ENCOUNTER → 2020-07-12 09:43 | Outpatient (POV) | payer MEDICARE, SELFPAY ==
[2020-07-12 11:22] VITALS: BP 125/85; PULSE 85; RESP 18; TEMP 36.8; O2SAT 99; BMI 28.1
--- NOTE | 2020-07-12 13:11 | HMH.PAINSOAP ---
[facility] Pain Management SOAP Note Subjective:: Patient is a 75-year-old white female who presents today for follow-up. Patient is having worsening low back pain on the left side that radiates into her left knee. Patient says that she has had a left SI joint injection in the past which she did get pain relief for up to 5 days. Patient says at the 12th day, she feels the injection helped with her left knee pain. Patient says her pain has returned to both the low back area and into her left knee. Patient says that she feels her knee is locking up and making her feel as though she is going to fall . She says that she has spasms in her left low back area for what feels like charley horses. She has had to go to the emergency room in the past for the pain. She is taking Tylenol arthritis. Patient I did discuss undergoing a MRI of her left knee, however, she does not want to do that at this time. We did discuss a left SI joint injection. She is agreeable to that. We also discussed possible compounding cream. The patient does use diclofenac gel to her left knee that she says is some what beneficial. It gives her about 20 to 30% relief. The compounding cream applied topically to the area may give her more relief. Today, she rates her pain a 2 out of 10. She does use a walker for ambulation on the right side. Review of Systems General: No recent weight changes, no fever, no sleep disturbances Respiratory: No cough, no shortness of air, no recurring pulmonary infections Cardiovascular/peripheral vascular: No chest pain, no palpitations, no edema, no shortness of breath Gastrointestinal: No new onset incontinence, normal bowel movements reported Genitourinary: No new onset incontinence Musculoskeletal: Left low back pain with radiation into left knee Psychiatric: Normal mood/affect Neurological: [Denies weakness in extremities], [denies balance issues] Objective:: Physical exam General: Alert and oriented x3, no acute distress, pleasant and cooperative, [on room air] Lungs: Respirations even and unlabored, symmetrical chest expansion Eyes: PERRL Musculoskeletal: Flexion and extension of lumbar spine somewhat guarded secondary to pain, deep tendon reflexes normal, strength in upper and lower extremities [5/5], [abnormal gait noted], positive Jodi's test, positive compression test, positive distraction test Neurological: Speech clear, family preservation worker equal, no gross sensory deficit Assessment:: Sacroiliitis left side, left knee pain Plan:: We will schedule the patient for a repeat left SI joint injection. We also discussed possible stabilization procedure if she continues to get relief with the injections, but her pain returns. She will also be ordered a compounding cream to apply topically to her left knee. Patient has been instructed regarding the SI joint injection. Risks and benefits of the procedure have been explained to the patient. Patient would like to proceed with the procedure. The patient and I specifically discussed risk factors for COVID19. These risks include, but are not limited to age greater than 60, heart or lung disease, diabetes, immunosuppression, and travel. We also discussed NSAIDs may worsen COVID19 infection or symptoms. Patient should not use NSAIDs to treat COVID19 signs or symptoms. Patient was also informed that any type of corticosteroid of any form (oral or injection) will decrease the patient's immune system response and may increase the likelihood of COVID19 infection [address] symptoms[address]. Eaton has reviewed this note and agrees with this plan of care. This note was dictated using voice recognition software and make contain errors or omissions. [facility] History I have reviewed the patient's past medical history: Yes Medical History: Reports:: Hyperlipidemia, Hypertension Denies:: Cancer, Diabetes Mellitus Type 1, Diabetes Mellitus Type 2, MRSA, Seizures *Have you ever received a pneumonia vaccine?: Yes *Have
== END ==
PROVIDERS: PCP Internal Medicine Adolescent Medicine; Visit Provider Clinical Nurse Specialist Family Health
DX: M46.1 Sacroiliitis, not elsewhere classified (principal); M25.562 Pain in left knee
CPT/HCPCS: 99212; G0463

== ENCOUNTER 2020-07-20 11:05 | Day surgery (SDC) | payer MEDICARE, SELFPAY ==
[2020-07-20 11:48] VITALS: BP 188/90; PULSE 55; RESP 18; TEMP 36.6; O2SAT 98; BMI 28.1
[2020-07-20 12:27] VITALS: BP 128/85; PULSE 85; RESP 18
[2020-07-20 12:31] VITALS: BP 128/78; PULSE 74; RESP 18; O2SAT 99
--- NOTE | 2020-07-20 12:34 | P.PCN_ITS ---
- Procedure Date: 07/20/20 Time: 12:34 Anesthesiologist:: Matteo Eaton MD Complications:: None Pre-procedure Diagnosis:: Sacroiliitis Post-procedure Diagnosis:: Same Indications for Procedure:: Patient is a pleasant 75-year-old white female who we are treating for left- sided hip pain. She is tender over the left SI joint. She is positive Jodi's test on left side. She is positive SI joint compression test on left side. She is positive Lino test on left side. We will do a left SI joint injection under fluoroscopy today to help her with her pain symptoms. She did very well from her last injection however she still does have some residual left knee pain. Procedure Details:: Left SI joint injection under fluoroscopy Informed consent was obtained and the risks and benefits of the procedure was explained to the patient. Patient was taken to the procedure room. Patient was placed prone on the procedure table. The left hip was prepped using ChloraPrep. The skin and subcutaneous tissues were anesthetized using lidocaine. I placed a 22-gauge spinal needle into the inferior aspect of the left SI joint. Needle placement was confirmed with dye. After this we injected 5 mL bupivacaine 0.25% and Depo-Medrol 40 mg into the left SI joint. The patient tolerated the procedure well with no complication. Plan and Disposition:: We will follow-up with her in 2 weeks. Will reevaluate her symptoms at that time. We may need to address her left knee pain she may need a left knee intra- articular injection in the future.
[2020-07-20 12:36] VITALS: BP 191/96; PULSE 57; RESP 18; TEMP 36.6; O2SAT 98
== END 2020-07-20 12:35 | disposition home or self-care (01) ==
LOC: SC.PAINP 11:08
PROVIDERS: PCP Internal Medicine Adolescent Medicine; Visit Provider Anesthesiology
DX: M46.1 Sacroiliitis, not elsewhere classified (principal); I10 Essential (primary) hypertension; E78.5 Hyperlipidemia, unspecified; E03.9 Hypothyroidism, unspecified; Z79.899 Other long term (current) drug therapy
CPT/HCPCS: 27096; G0260; J1040; Q9966

== ENCOUNTER → 2020-08-09 13:39 | Outpatient (POV) | payer MEDICARE, SELFPAY ==
--- NOTE | 2020-08-09 14:19 | HMH.PAINSOAP ---
[facility] Pain Management SOAP Note Subjective:: Patient is a pleasant 75-year-old white female who presents today for follow-up after SI joint injection. Patient main complaint today is her left knee pain. She rates her pain a 1 out of 10. Patient has difficulty with walking and standing due to her left knee pain. Patient I discussed left knee intra-articular injection she is interested in pursuing this. ROS General: no recent weight change, no fever, no sleep disturbances Respiratory: no cough, no shortness of air, no recurring pulmonary infections Cardiovascular/Peripheral Vascular: No chest pain, No palpitations, no edema, no shortness of breath. Gastrointestinal: no new onset incontinence, normal bowel movements reported Genitourinary: no new onset incontinence Musculoskeletal: Knee pain Psychiatric: normal mood/ affect Neurological: [denies new onset weakness in extremities], [denies new onset balance issues] Objective:: Physical Exam General: Alert and oriented x3, no acute distress, pleasant and cooperative, [on room air] Lungs: Resps E/U, Symmetrical chest expansion, Eyes: PERRL Musculoskeletal: Range of motion left knee somewhat guarded secondary to pain, deep tendon reflexes normal, strength in upper and lower extremities [5/5], [abnormal gait noted] 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 Given her symptomology I do believe this would benefit her. I will follow-up with her after this reassess her symptoms at that time she has been instructed to call the office if she has any issues prior to her next appointment. Dr. Eaton has reviewed this note and agrees with this plan of care. This note was dictated using voice recognition software and may contain errors or omissions [facility] History I have reviewed the patient's past medical history: Yes Medical History: Reports:: Hyperlipidemia, Hypertension Denies:: Cancer, Diabetes Mellitus Type 1, Diabetes Mellitus Type 2, MRSA, Seizures *Have you ever received a pneumonia vaccine?: No *Have you received a flu vaccine this season?: No Other Medical History: Reports: Hypothyroidism, Thyroid Disease. Denies: Blood Transfusion Reaction Laterality Cases: Left: Lumpectomy Other Surgeries: Yes: Hysterectomy-Partial, Tubal Ligation, Other (back surgery discectomy L4/5) Amputation: No Fractures: No - *Social History Smoking Status: Never smoker Alcohol Intake: never *Occupational Status:: retired Housing: house Household Members: spouse *Travel in the last 8 weeks: None Family Hx:: No significant family history, Non-contributory
== END ==
PROVIDERS: PCP Internal Medicine Adolescent Medicine; Visit Provider Clinical Nurse Specialist Family Health
DX: M17.12 Unilateral primary osteoarthritis, left knee (principal)

== ENCOUNTER → 2020-08-17 10:30 | Day surgery (SDC) | payer MEDICARE, SELFPAY ==
[2020-08-17 11:33] VITALS: BP 158/65; PULSE 53; RESP 18; TEMP 36.4; O2SAT 98; BMI 28.1
[2020-08-17 12:13] VITALS: BP 125/85; PULSE 77; RESP 18; O2SAT 98
--- NOTE | 2020-08-17 12:14 | HMH.PMPROC ---
- Procedure Date: 08/17/20 Time: 12:14 Anesthesiologist:: Matteo Eaton MD Complications:: None Pre-procedure Diagnosis:: Left knee pain with degenerative osteoarthritis Post-procedure Diagnosis:: Same Indications for Procedure:: This patient is a pleasant 75-year-old white female who we are treating for sacroiliitis and now left knee pain. She had SI joint injection. She is doing much better after her SI joint injection. She now has chronic left knee pain. She has degenerative osteoarthritis. We will do a left knee intra-articular injection to see if this helps with her pain symptoms. Procedure Details:: Left knee intra-articular injection Informed consent was obtained the risk and benefits of the procedure were explained to the patient. Patient was taken the procedure room left knee was prepped using ChloraPrep. A 25-gauge needle was used first medially then laterally to inject 10 mL bupivacaine 0.25% and Depo-Medrol 40 mg into the left knee. Patient tolerated the procedure well with no complications. Plan and Disposition:: We will follow-up with her in 2 weeks. Will reevaluate symptoms at that time.
== END ==
PROVIDERS: PCP Internal Medicine Adolescent Medicine; Visit Provider Anesthesiology
DX: M17.12 Unilateral primary osteoarthritis, left knee; I10 Essential (primary) hypertension; E78.5 Hyperlipidemia, unspecified; E03.9 Hypothyroidism, unspecified; I48.91 Unspecified atrial fibrillation; Z79.899 Other long term (current) drug therapy
CPT/HCPCS: 20610; J1040

== ENCOUNTER → 2020-09-10 11:08 | Outpatient (POV) | payer MEDICARE, SELFPAY ==
--- NOTE | 2020-09-10 11:39 | HMH.PAINSOAP ---
[facility] Pain Management SOAP Note Subjective:: Patient is a pleasant 75-year-old white female who presents today for follow-up after left intra-articular knee injection. She rates her pain a 0 out of 10 overall doing extremely well. She denies any current issues. And would like to follow-up on an as-needed basis. ROS General: no recent weight change, no fever, no sleep disturbances Respiratory: no cough, no shortness of air, no recurring pulmonary infections Cardiovascular/Peripheral Vascular: No chest pain, No palpitations, no edema, no shortness of breath. 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 Patient's been instructed to call the office if she has any issues prior to her next appointment. Dr. Eaton has reviewed this note and agrees with this plan of care. This note was dictated using voice recognition software and may contain errors or omissions [facility] History I have reviewed the patient's past medical history: Yes Medical History: Reports:: Atrial Fibrillation, Hyperlipidemia, Hypertension Denies:: Cancer, Diabetes Mellitus Type 1, Diabetes Mellitus Type 2, MRSA, Seizures *Have you ever received a pneumonia vaccine?: No *Have you received a flu vaccine this season?: No Other Medical History: Reports: Hypothyroidism, Thyroid Disease. Denies: Blood Transfusion Reaction Laterality Cases: Left: Lumpectomy Other Surgeries: Yes: Hysterectomy-Partial, Tubal Ligation, Other (back surgery discectomy L4/5) Amputation: No Fractures: No - *Social History Smoking Status: Never smoker Alcohol Intake: never *Occupational Status:: retired Housing: house Household Members: spouse *Travel in the last 8 weeks: None Family Hx:: No significant family history, Non-contributory
[2020-09-10 12:43] VITALS: BP 121/65; PULSE 87; RESP 18; O2SAT 98; BMI 28.1
== END ==
PROVIDERS: PCP Internal Medicine Adolescent Medicine; Visit Provider Clinical Nurse Specialist Family Health
DX: M17.12 Unilateral primary osteoarthritis, left knee
CPT/HCPCS: 99212; G0463

== ENCOUNTER → 2020-10-08 10:17 | Outpatient (CLI) | payer MEDICARE, SELFPAY ==
[2020-10-08 10:57] LABS: Basophils # 0.1 K/mm3 (0-0.2); Basophils % 0.9 % (0.1-2.0); Eosinophils # 0.2 K/mm3 (0.0-0.4); Eosinophils % 3.5 % (0.1-12.0); Hematocrit 40.8 % (37.0-47.0); Hemoglobin 13.8 g/dL (12.2-16.2); Lymphocytes # 1.5 K/mm3 (0.7-4.5); Lymphocytes % 29.3 % (10-50); Mean Corpuscular HGB Conc 33.9 g/dL (31.8-35.4); Mean Corpuscular Hemoglobin 30.5 pg (27.0-31.2); Mean Corpuscular Volume 89.9 fl (81-99); Mean Platelet Volume 8.1 fl (7.4-10.4); Monocytes # 0.3 K/mm3 (0.1-1.0); Monocytes % 6.3 % (1.7-9.3); Platelet Count 273 K/mm3 (142-424); Red Blood Count 4.55 M/mm3 (4.20-5.40); Red Cell Distribution Width 14.3 % (11.5-17.5)
[2020-10-08 11:08] LABS: Chloride 108 mmol/L (98-107); Potassium 4.4 mmoL/L (3.5-5.1); Sodium 141 mmol/L (136-145)
[2020-10-08 11:11] LABS: Alanine Aminotransferase 15 U/L (12-78); Albumin Level 4.9 g/dl (3.5-5.0); Albumin/Globulin Ratio 1.8 (1.1-1.8); Alkaline Phosphatase 65 U/L (38-126); Anion Gap 12.4 mEq/L (5-15); Aspartate Amino Transferase 30 U/L (14-36); Bilirubin,Total 1.3 mg/dl (0.2-1.3); Blood Urea Nitrogen 19 mg/dl (7-17); Calcium 9.6 mg/dl (8.4-10.2); Carbon Dioxide 25 mmol/L (22.0-30.0); Chol/HDL Ratio 3.5 (1-3.5); Cholesterol 227 mg/dl (140-200); Estimated Glomerular Filt Rate 97 ml/min (>60); GFR (African American) 118 ML/MIN (>60); Globulin 2.7 g/dL (1.3-3.2); Glucose 101 mg/dl (74-100); HDL Cholesterol 64 mg/dl (40-60); Total Protein,Serum 7.6 g/dl (6.3-8.2); Triglycerides 172 mg/dl (30-150); VLDL Cholesterol 34 mg/dL (0-40)
[2020-10-08 11:23] LABS: Direct LDL Cholesterol 141.26 mg/dL (100-129)
[2020-10-08 11:27] LABS: Triiodothryronine (T3) Uptake 37 % (23.5-40.5)
[2020-10-08 11:28] LABS: 25-OH Vitamin D, Total 75.3 ng/mL (30-100); Free Thyroxine Index 4.2 ug/dL (5.93-13.13); T4 (Thyroxine) 11.4 ug/dl (5.53-11.0)
[2020-10-08 11:41] LABS: Thyroid Stimulating Hormone 0.35 uIU/mL (0.465-4.68)
== END ==
PROVIDERS: Visit Provider Internal Medicine Adolescent Medicine
DX: E03.9 Hypothyroidism, unspecified (principal); E78.5 Hyperlipidemia, unspecified; E55.9 Vitamin D deficiency, unspecified
CPT/HCPCS: 36415; 80053; 80061; 82306; 84436; 84443; 84479; 85025

== ENCOUNTER → 2020-12-17 15:15 | Outpatient (POV) | payer MEDICARE, SELFPAY ==
[2020-12-17 15:29] VITALS: BP 126/70; PULSE 86; RESP 18; O2SAT 98; BMI 28.3
--- NOTE | 2020-12-17 15:40 | HMH.PAINSOAP ---
[facility] Pain Management SOAP Note Subjective:: Patient is a pleasant 75-year-old white female who presents today for follow-up. She is here with increasing pain over her right SI joint. And bilateral knee pain the patient rates her pain today a 6 out of 10. The patient is having increasing discomfort over her right SI radiating into her right lower extremity. She has had left-sided SI joint injections in the past that provided adequate relief in her symptoms for an extended period of time. She states that the pain is made worse with prolonged sitting, she constantly has to shift her weight due to discomfort. She is also complaining of increasing discomfort in bilateral knees. The patient has been diagnosed with osteoarthritis. She has had knee injections in the past, these did provide relief in her discomfort for several months. For today the patient is wanting to schedule right-sided SI joint injections. Review of Systems General: No recent weight changes, no fever, no sleep disturbances Respiratory: No cough, no shortness of air, no recurring pulmonary infections Cardiovascular/peripheral vascular: No chest pain, no palpitations, no edema, no shortness of breath Gastrointestinal: No new onset incontinence, normal bowel movements reported Genitourinary: No new onset incontinence Musculoskeletal: Right SI pain, bilateral knee pain Psychiatric: [Normal mood/affect] Neurological: [Denies weakness in extremities], [denies balance issues] Objective:: Physical exam General: Alert and oriented x3 no acute distress, pleasant and cooperative, [on room air] Lungs: Respirations even and unlabored, symmetrical chest expansion Eyes: PERRL Musculoskeletal: Flexion and extension of the lumbar spine nonguarded, deep tendon reflexes normal, strength in upper and lower extremities 5 out of 5 normal gait noted, positive Jodi's, compression and distraction exam right side, crepitation is noted with flexion of bilateral knees, mild effusion noted today, tenderness medial aspect of proximal tibia bilaterally 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 The procedure, risk, benefits were all discussed with the patient today. She has received these in the past on the left side that provided adequate relief in her discomfort. The patient is also interested in receiving bilateral knee injections. I have recommended intra-articular knee injections bilaterally following her right SI injection. We did discuss today that if she does not receive adequate relief from the joint injections that she may benefit from genicular nerve block/RFA as she does not want to proceed with any type of replacements in her knees. She is welcome to contact the clinic prior to her next appointment date if she has any questions or concerns. Dr. Eaton has reviewed this note and agrees with this plan of care. This note was dictated using voice recognition software and make contain errors or omissions. [facility] History Medical History: Reports:: Atrial Fibrillation, Hyperlipidemia, Hypertension Denies:: Cancer, Diabetes Mellitus Type 1, Diabetes Mellitus Type 2, MRSA, Seizures *Have you ever received a pneumonia vaccine?: Yes *Have you received a flu vaccine this season?: Yes Other Medical History: Reports: Hypothyroidism, Thyroid Disease. Denies: Blood Transfusion Reaction Laterality Cases: Left: Lumpectomy Other Surgeries: Yes: Hysterectomy-Partial, Tubal Ligation, Other (back surgery discectomy L4/5) Amputation: No Fractures: No - *Social History Smoking Status: Never smoker Alcohol Intake: never *Occupational Status:: unemployed Housing: house Household Members: spouse *Travel in the last 8 weeks: None Family Hx:: No significant family history, Non-contributory
== END ==
PROVIDERS: PCP Internal Medicine Adolescent Medicine; Visit Provider Family Medicine
DX: M46.1 Sacroiliitis, not elsewhere classified (principal); M17.0 Bilateral primary osteoarthritis of knee
CPT/HCPCS: 99212; G0463

== ENCOUNTER 2021-01-04 10:59 | Day surgery (SDC) | payer MEDICARE, SELFPAY ==
[2021-01-04 11:09] VITALS: BP 199/94; PULSE 60; RESP 18; TEMP 36.4; O2SAT 97; BMI 29.1
[2021-01-04 11:31] VITALS: BP 155/77; PULSE 60; RESP 18; O2SAT 98
[2021-01-04 11:32] VITALS: BP 155/77; PULSE 60; RESP 18; O2SAT 98
--- NOTE | 2021-01-04 11:39 | P.PCN_ITS ---
- Procedure Date: 01/04/21 Time: 11:39 Anesthesiologist:: Matteo Eaton MD Complications:: None Pre-procedure Diagnosis:: Sacroiliitis Post-procedure Diagnosis:: Same Indications for Procedure:: Patient is a pleasant 75-year-old white female who we are treating for right- sided hip pain. She is tender over the right SI joint. She has a positive Jodi's test on the right side. She is positive Lino of the right side. She has a positive SI joint compression test on the right side. She has a positive distraction test on the right side. We will plan a right SI joint injection under fluoroscopy today to help with her pain symptoms. Procedure Details:: Right SI joint injection under fluoroscopy Informed consent was obtained and the risks and benefits of the procedure was going to the patient. Patient was taken to the procedure room. Patient was placed prone on the procedure table. The right hip was prepped using ChloraPrep. The skin and subcutaneous tissues were anesthetized using lidocaine. I placed a 22-gauge spinal needle into the inferior aspect of the right SI joint. Needle placement was confirmed with dye. After this we injected 5 mL bupivacaine 0.25% and Depo-Medrol 40 mg into the right SI joint. The patient tolerated the procedure well with no complication. Plan and Disposition:: We will follow-up with her in 2 weeks. Will reevaluate symptoms at that time.
[2021-01-04 11:42] VITALS: BP 176/89; PULSE 60; RESP 18; O2SAT 97
== END 2021-01-04 11:42 | disposition home or self-care (01) ==
LOC: SC.PAINP 11:01
PROVIDERS: PCP Internal Medicine Adolescent Medicine; Visit Provider Anesthesiology
DX: M46.1 Sacroiliitis, not elsewhere classified (principal); E78.5 Hyperlipidemia, unspecified; I48.91 Unspecified atrial fibrillation; I10 Essential (primary) hypertension; E03.9 Hypothyroidism, unspecified
CPT/HCPCS: 27096; G0260; J1040; Q9966

== ENCOUNTER → 2021-02-14 15:46 | Outpatient (CLI) | payer MEDICARE, SELFPAY ==
[2021-02-14 17:46] LABS: Free Thyroxine Index 2.7 ug/dL (5.93-13.13); T4 (Thyroxine) 8.5 ug/dl (5.53-11.0); Triiodothryronine (T3) Uptake 32 % (23.5-40.5)
[2021-02-14 18:00] LABS: Thyroid Stimulating Hormone 1.33 uIU/mL (0.465-4.68)
[2021-02-14 18:19] LABS: Chloride 104 mmol/L (98-107); Sodium 142 mmol/L (136-145)
[2021-02-14 18:20] LABS: Potassium 4.1 mmoL/L (3.5-5.1)
[2021-02-14 18:22] LABS: Anion Gap 12.1 mEq/L (5-15); Blood Urea Nitrogen 17 mg/dl (7-17); Calcium 9.8 mg/dl (8.4-10.2); Carbon Dioxide 30 mmol/L (22.0-30.0); Estimated Glomerular Filt Rate 97 ml/min (>60); GFR (African American) 118 ML/MIN (>60); Glucose 98 mg/dl (74-100)
== END ==
PROVIDERS: Visit Provider Internal Medicine Adolescent Medicine
DX: E03.9 Hypothyroidism, unspecified (principal); I10 Essential (primary) hypertension
CPT/HCPCS: 36415; 80048; 83735; 84436; 84443; 84479

== ENCOUNTER → 2021-04-22 09:37 | Outpatient (POV) | payer MEDICARE, SELFPAY ==
[2021-04-22 09:53] VITALS: BP 130/93; PULSE 68; RESP 18; O2SAT 96; BMI 29.9
--- NOTE | 2021-04-22 10:01 | HMH.PAINSOAP ---
[facility] Pain Management SOAP Note Subjective:: Patient is a 75-year-old white female who presents today for follow-up. She was last seen in the clinic on 01/04/2021 for bilateral SI joint injections. She is done excellent with these injections until recently. She is having right low back pain with radiation into right buttock. She is complaining mostly of bilateral knee pain today, however. She has been told by Dr. Corley that she does have osteoarthritis. She has a history of a meniscal tear in the right knee. The patient is unable to take anti-inflammatories due to Xarelto use. She does continue with home stretching and does care for her disabled son. She does rate her pain a 6 out of 10 today. She is having difficulty standing, walking. She does say when sitting she has minimal pain. The pain is to the medial and lateral aspect of bilateral knees. She does report the left knee to be worse at this time. She has had a lumbar epidural steroid injection in the past for sciatica pain and says that this helped with the pain immensely. Review of Systems General: No recent weight changes, no fever, no sleep disturbances Respiratory: No cough, no shortness of air, no recurring pulmonary infections Cardiovascular/peripheral vascular: No chest pain, no palpitations, no edema, no shortness of breath Gastrointestinal: No new onset incontinence, normal bowel movements reported Genitourinary: No new onset incontinence Musculoskeletal: Bilateral knee pain, low back pain right side with radiation into right buttock Psychiatric: [Normal mood/affect] Neurological: [Denies weakness in extremities], [denies balance issues] Objective:: Physical exam General: Alert and oriented x3, no acute distress, pleasant and cooperative Lungs: Respirations even and unlabored, symmetrical chest expansion Eyes: PERRL Musculoskeletal: Flexion and extension of lumbar [spine] somewhat guarded secondary to pain, [antalgic gait noted], positive Minerva's test, positive Jodi's test, positive compression test, positive distraction test, flexion of bilateral knees guarded secondary to pain generalized edema noted bilateral knees Neurological: Speech clear, no gross sensory deficit Assessment:: Osteoarthritis bilateral knees, bilateral knee pain, sacroiliitis right Plan:: Patient is here today with complaints of bilateral knee pain and right low back pain. The pain is worse to her bilateral knees at this time. She has had bilateral SI injections and got significant relief until recently. She continues with home stretching. She is unable to take anti-inflammatories due to anticoagulation use?Xarelto. We will schedule patient for bilateral intra-articular knee injections. She would like to proceed after bilateral knee injections with a right SI joint injection. The patient got more than 80% relief with her previous SI injections. Patient's pain is worse to bilateral knees with standing, walking. Pain does improve with sitting. We will see the patient back after bilateral knee injections for reevaluation symptoms. Possible side effects of corticosteroids have been discussed with the patient. Risks and benefits of the procedure have been explained to the patient. Patient would like to proceed with the procedure. Patient has been instructed to contact the clinic with any concerns before the next appointment. Dr. Eaton has reviewed this note and agrees with this plan of care. This note was dictated using voice recognition software and make contain errors or omissions. [facility] History I have reviewed the patient's past medical history: Yes Medical History: Reports:: Atrial Fibrillation, Hyperlipidemia, Hypertension Denies:: Cancer, Diabetes Mellitus Type 1, Diabetes Mellitus Type 2, MRSA, Seizures *Have you ever received a pneumonia vaccine?: Yes *Have you received a flu vaccine this season?: Yes Other Medical History: Reports: Hypothyroidism, Thyroid Disease
== END ==
PROVIDERS: Visit Provider Clinical Nurse Specialist Family Health
DX: M17.0 Bilateral primary osteoarthritis of knee (principal); M46.1 Sacroiliitis, not elsewhere classified
CPT/HCPCS: 99212; G0463

== ENCOUNTER 2021-05-03 14:35 | Day surgery (SDC) | payer MEDICARE, SELFPAY ==
[2021-05-03 14:47] VITALS: BP 159/79; PULSE 56; RESP 20; TEMP 36.3; O2SAT 99; BMI 29.9
--- NOTE | 2021-05-03 15:02 | P.PCN_ITS ---
- Procedure Date: 05/03/21 Time: 15:03 Anesthesiologist:: Mitra Ricketts MD Complications:: None Pre-procedure Diagnosis:: Bilateral knee osteoarthritis, bilateral knee pain Post-procedure Diagnosis:: Same Indications for Procedure:: This patient is a very pleasant 75-year-old white female who presents today with chronic knee pain related to the above diagnosis. She has tried and failed conservative treatment getting oral pain medications and home stretching program for greater than 6 weeks. Of note she previously underwent bilateral SI joint injections on January 04, 2021 and states that she has achieved greater than 80% pain relief up until recently. She states that the pain has since returned. However, she states her biggest concern today is her bilateral knee pain and is requesting knee injections today. The plan for today is for the patient to undergo intra-articular corticosteroid injections to bilateral knees. Procedure Details:: Informed consent was obtained. Risks and benefits of the procedure were explained to the patient. Patient was taken back to the procedure room. Right and left knee was prepped using ChloraPrep. 5 gauge needle was used in a lateral to medial trajectory and the needle was advanced until the intra- articular knee joint was approached. An injectate solution of 10 mL of bupivacaine 0.25% and Depo-Medrol 40 mg was injected into the left knee. This was then repeated on the right side. Patient tolerated the procedure well with no complications. Plan and Disposition:: We will follow-up with this patient in 2 weeks. Will reevaluate pain symptoms at that time.
[2021-05-03 15:09] VITALS: BP 164/84; PULSE 56; RESP 18; O2SAT 97
[2021-05-03 15:21] VITALS: BP 156/82; PULSE 58; RESP 20; O2SAT 100
== END 2021-05-03 15:21 | disposition home or self-care (01) ==
LOC: SC.PAINP 14:36
PROVIDERS: PCP Internal Medicine Adolescent Medicine; Visit Provider Anesthesiology Pain Medicine
DX: M17.0 Bilateral primary osteoarthritis of knee (principal); E03.9 Hypothyroidism, unspecified; E78.5 Hyperlipidemia, unspecified; I48.91 Unspecified atrial fibrillation; I10 Essential (primary) hypertension; Z79.899 Other long term (current) drug therapy
CPT/HCPCS: 20610; J1040

== ENCOUNTER → 2021-05-27 09:07 | Outpatient (POV) | payer MEDICARE, SELFPAY ==
--- NOTE | 2021-05-27 09:33 | HMH.PAINSOAP ---
[facility] Pain Management SOAP Note Subjective:: Patient is a 75-year-old white female who presents today for follow-up after bilateral intra-articular knee injections. Patient says that she got significant relief at about 80%. She says that she was much more functional through Flippin after the injections. She has had bilateral SI joint injections in the past as well as knee injections. She was very pleased with the results. She says that she was very happy with Dr. Ricketts doing the injections. Today, she rates her pain a 2 out of 10. In the past, she has had a meniscal tear on the right side. Review of Systems General: No recent weight changes, no fever, no sleep disturbances Respiratory: No cough, no shortness of air, no recurring pulmonary infections Cardiovascular/peripheral vascular: No chest pain, no palpitations, no edema, no shortness of breath Gastrointestinal: No new onset incontinence, normal bowel movements reported Genitourinary: No new onset incontinence Musculoskeletal: Intermittent bilateral knee pain Psychiatric: [Normal mood/affect] Neurological: [Denies weakness in extremities], [denies balance issues] Objective:: Physical exam General: Alert and oriented x3, no acute distress, pleasant and cooperative Lungs: Respirations even and unlabored, symmetrical chest expansion Eyes: PERRL Musculoskeletal: Flexion and extension of bilateral lower extremities somewhat guarded secondary to pain, [antalgic gait noted] Neurological: Speech clear, no gross sensory deficit Assessment:: Osteoarthritis bilateral knees, bilateral knee pain Plan:: Patient is doing well since the injections. We will plan to follow-up with her in 3 months for further evaluation. If the pain does return for then she can contact clinic. Patient has been instructed to contact the clinic with any concerns before the next appointment. Dr. Eaton has reviewed this note and agrees with this plan of care. This note was dictated using voice recognition software and make contain errors or omissions. [facility] History I have reviewed the patient's past medical history: Yes Medical History: Reports:: Atrial Fibrillation, Hyperlipidemia, Hypertension Denies:: Cancer, Diabetes Mellitus Type 1, Diabetes Mellitus Type 2, MRSA, Seizures *Have you ever received a pneumonia vaccine?: Yes *Have you received a flu vaccine this season?: Yes Other Medical History: Reports: Arthritis, Hypothyroidism, Thyroid Disease. Denies: Blood Transfusion Reaction Laterality Cases: Left: Lumpectomy Other Surgeries: Yes: Hysterectomy-Partial, Tubal Ligation, Other (back surgery discectomy L4/5) Amputation: No Fractures: No - *Social History Smoking Status: Never smoker Alcohol Intake: never *Occupational Status:: retired Housing: house Household Members: children *Travel in the last 8 weeks: None Family Hx:: No significant family history, Non-contributory
[2021-05-27 09:41] VITALS: BP 149/95; PULSE 69; RESP 18; O2SAT 97; BMI 29.9
[2021-05-27 11:33] LABS: Basophils % 0.9 % (0.1-2.0); Eosinophils # 0.2 K/mm3 (0.0-0.4); Eosinophils % 3.8 % (0.1-12.0); Hematocrit 45.1 % (37.0-47.0); Hemoglobin 14.6 g/dL (12.2-16.2); Lymphocytes # 1.6 K/mm3 (0.7-4.5); Lymphocytes % 31.7 % (10-50); Mean Corpuscular HGB Conc 32.4 g/dL (31.8-35.4); Mean Corpuscular Hemoglobin 30.8 pg (27.0-31.2); Mean Corpuscular Volume 94.9 fl (81-99); Mean Platelet Volume 7.8 fl (7.4-10.4); Monocytes # 0.4 K/mm3 (0.1-1.0); Monocytes % 7.5 % (1.7-9.3); Neutrophils # 2.9 K/mm3 (1.8-7.8); Neutrophils % 56.1 % (37.0-80.0); Platelet Count 299 K/mm3 (142-424); Red Blood Count 4.75 M/mm3 (4.20-5.40); Red Cell Distribution Width 13.3 % (11.5-17.5); White Blood Count 5.1 K/mm3 (4.8-10.8)
[2021-05-27 11:58] LABS: Alanine Aminotransferase 19 U/L (12-78); Albumin Level 4.6 g/dl (3.5-5.0); Albumin/Globulin Ratio 1.8 (1.1-1.8); Alkaline Phosphatase 72 U/L (38-126); Anion Gap 10.9 mEq/L (5-15); Aspartate Amino Transferase 33 U/L (14-36); Bilirubin,Total 0.9 mg/dl (0.2-1.3); Blood Urea Nitrogen 23 mg/dl (7-17); Calcium 9.9 mg/dl (8.4-10.2); Carbon Dioxide 31 mmol/L (22.0-30.0); Chloride 103 mmol/L (98-107); Chol/HDL Ratio 3.9 (1-3.5); Cholesterol 256 mg/dl (140-200); Creatinine Clearance Estimated 62 mL/min (50-200); Estimated Glomerular Filt Rate 81 ml/min (>60); GFR (African American) 98 ML/MIN (>60); Globulin 2.6 g/dL (1.3-3.2); Glucose 90 mg/dl (74-100); HDL Cholesterol 66 mg/dl (40-60); Potassium 3.9 mmoL/L (3.5-5.1); Sodium 141 mmol/L (136-145); Total Protein,Serum 7.2 g/dl (6.3-8.2); Triglycerides 177 mg/dl (30-150); VLDL Cholesterol 35 mg/dL (0-40)
[2021-05-27 12:09] LABS: Direct LDL Cholesterol 161.64 mg/dL (100-129)
[2021-05-27 12:14] LABS: 25-OH Vitamin D, Total 68.3 ng/mL (30-100)
[2021-05-27 12:18] LABS: Free Thyroxine Index 3.1 ug/dL (5.93-13.13); Triiodothryronine (T3) Uptake 34 % (23.5-40.5)
[2021-05-27 12:32] LABS: Thyroid Stimulating Hormone 1.13 uIU/mL (0.465-4.68)
== END ==
PROVIDERS: PCP Internal Medicine Adolescent Medicine; Visit Provider Clinical Nurse Specialist Family Health
DX: M17.0 Bilateral primary osteoarthritis of knee (principal); E03.9 Hypothyroidism, unspecified; E55.9 Vitamin D deficiency, unspecified
CPT/HCPCS: 36415; 80053; 80061; 82306; 84436; 84443; 84479; 85025; 99212; G0463

== ENCOUNTER → 2021-06-11 08:56 | Outpatient (CLI) | payer MEDICARE, SELFPAY ==
--- NOTE | 2021-06-11 08:59 | XR_ITS ---
FINAL REPORT TECHNIQUE: Bone densitometry calculations of the lumbar spine and left hip were obtained. CLINICAL HISTORY: . post menopausaL FINDINGS: Using L1-4, the bone mineral density of the spine is 0.984 g/cm2, corresponding to T-score of -0.6. Using the left hip, the bone mineral density of the femoral neck is 0.747 g/cm2, corresponding to a T-score of -1.6. NOTE: T-score: Standard deviation compared with peak bone mass of young adult mean. *Following the recommendations of the International Society of Bone densitometry, classification of hip BMD is based on the lower of two T-scores; total hip or femoral neck. IMPRESSION: Normal bone mineral density of the lumbar spine. Please note these values may be increased related to degenerative changes. Decreased bone mineral density in the left hip consistent with osteopenia. FRAX Fracture Risk Assessment tool--10 year fracture risk is 10% for major osteoporotic fracture. 1.8% for hip fracture. Reviewed, Interpreted and Dictated by David Alvarez MD Transcribed by Yaima Clemente Authenticated by David Alvarez MD on 06/11/2021 11:25:03 AM [facility]
== END ==
PROVIDERS: PCP Internal Medicine Adolescent Medicine; Visit Provider Internal Medicine Adolescent Medicine
DX: Z78.0 Asymptomatic menopausal state (principal); E55.9 Vitamin D deficiency, unspecified
CPT/HCPCS: 77080

== ENCOUNTER → 2021-09-02 10:17 | Outpatient (POV) | payer MEDICARE, SELFPAY ==
[2021-09-02 10:25] VITALS: BP 134/66; PULSE 58; RESP 18; TEMP 36.2; O2SAT 98; BMI 30.2
--- NOTE | 2021-09-02 11:13 | HMH.PAINSOAP ---
[facility] Pain Management SOAP Note Subjective:: Patient is a pleasant 76-year-old female who presents today for follow-up. We are currently treating this patient for osteoarthritis of bilateral knees and sacroiliitis. We have been managing the patient with injective therapy. We last saw the patient in April 2021 where we did a bilateral intra-articular knee injections. This provided the patient 80% relief. Today, patient states that she is starting to have some pain in her knees. She feels like she needs a repeat bilateral knee injections. For pain, she takes arthritis strength Tylenol and uses her Voltaren gel. She has not seen orthopedics. 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 She says that he is a total care. She rates her pain today as 8 out of 10. Review of Systems: General: No recent weight changes, no fever, no sleep disturbances Respiratory: No cough, no shortness of air, no recurring pulmonary infections Cardiovascular/peripheral vascular: No chest pain, no palpitations, no edema, no shortness of breath Gastrointestinal: No new onset incontinence, normal bowel movements reported Genitourinary: No new onset incontinence Musculoskeletal: Bilateral knee pain Psychiatric: [Normal mood/affect] Neurological: [Denies weakness in extremities], [denies balance issues] Objective:: Physical Exam: General: Alert and oriented x3, no acute distress, pleasant and cooperative, [on room air] Lungs: Respirations even and unlabored, symmetrical chest expansion Eyes: PERRL Musculoskeletal: Limited range of motion of bilateral knees secondary to pain. There is no swelling or erythema. Neurological: Speech clear, no gross sensory deficit Assessment:: Osteoarthritis of bilateral knees Sacroiliitis Plan:: Patient has been having worsening bilateral knee pain in the last few weeks. We have been managing this patient with intra-articular knee injections. We will schedule the patient for a bilateral knee intra-articular injections. Risks and benefits of the procedure have been explained to the patient. Patient would like to proceed with the procedure. Patient is taking Xarelto but will not need to stop this medication before the procedure. I also discussed with the patient that we can do genicular nerve blocks and ablation if the intra-articular injections start to provide temporary relief. I also discussed with the patient that it might be beneficial to her to see orthopedics sooner than later. If she waits too long, she may not be a surgical candidate because of age. Patient has been instructed to contact the clinic with any concerns before the next appointment. Dr. Eaton has reviewed this note and agrees with this plan of care. This note was dictated using voice recognition software and make contain errors or omissions. [facility] History Medical History: Reports:: Atrial Fibrillation, Hyperlipidemia, Hypertension Denies:: Cancer, Diabetes Mellitus Type 1, Diabetes Mellitus Type 2, MRSA, Seizures *Have you ever received a pneumonia vaccine?: Yes *Have you received a flu vaccine this season?: Yes Other Medical History: Reports: Arthritis, Hypothyroidism, Thyroid Disease. Denies: Blood Transfusion Reaction Laterality Cases: Left: Lumpectomy Other Surgeries: Yes: Hysterectomy-Partial, Tubal Ligation, Other (back surgery discectomy L4/5) Amputation: No Fractures: No - *Social History Smoking Status: Never smoker Alcohol Intake: never *Occupational Status:: retired Housing: house Household Members: children *Travel in the last 8 weeks: None Family Hx:: No significant family history, Non-contributory
== END ==
PROVIDERS: Visit Provider Student in an Organized Health Care Education/Training Program
DX: M17.0 Bilateral primary osteoarthritis of knee (principal); M46.1 Sacroiliitis, not elsewhere classified
CPT/HCPCS: 99212; G0463

== ENCOUNTER 2021-09-06 07:54 | Day surgery (SDC) | payer MEDICARE, SELFPAY ==
[2021-09-06 08:13] VITALS: BP 135/81; PULSE 58; RESP 16; TEMP 36.4; O2SAT 98; BMI 30.2
[2021-09-06 08:23] VITALS: BP 135/81; PULSE 58; RESP 18; O2SAT 98
[2021-09-06 08:27] VITALS: BP 137/74; PULSE 55; RESP 18; O2SAT 97
[2021-09-06 08:32] VITALS: BP 137/74; PULSE 55; RESP 20; O2SAT 97
--- NOTE | 2021-09-06 08:38 | P.PCN_ITS ---
- Procedure Date: 09/06/21 Time: 08:38 Anesthesiologist:: Juan Fields CRNA Complications:: None Pre-procedure Diagnosis:: Osteoarthritis bilateral knees Post-procedure Diagnosis:: Same Indications for Procedure:: Very pleasant 76-year-old white female who is responded very well to bilateral knee cortisone injections in the past. She presents today for bilateral intra- articular cortisone injections in the knees. Procedure Details:: Details of the procedure were explained to the patient. The patient was prepped over the bilateral knee joints. A 25-gauge needle was used to anesthetize the skin and subcutaneous tissue at the medial condylar space bilaterally. Using a 1-1/2 gauge 22 needle and intra-articular steroid injection was given without difficulty. Injection was 4 cc of 1% lidocaine +4 cc of 0.25% Marcaine and 40 mg of Depo-Medrol. The injections were given bilaterally. Patient tolerated procedure without difficulty. There were no complications. Plan and Disposition:: Patient was discharged home without difficulty. She will follow-up in the clinic as needed.
== END 2021-09-06 08:33 | disposition home or self-care (01) ==
LOC: SC.PAINP 07:55
PROVIDERS: PCP Internal Medicine Adolescent Medicine; Visit Provider Nurse Anesthetist, Certified Registered
DX: M17.0 Bilateral primary osteoarthritis of knee (principal); I48.91 Unspecified atrial fibrillation; E78.5 Hyperlipidemia, unspecified; I10 Essential (primary) hypertension; M19.90 Unspecified osteoarthritis, unspecified site; E03.9 Hypothyroidism, unspecified
CPT/HCPCS: 20610; J1030

== ENCOUNTER → 2021-10-07 08:32 | Outpatient (POV) | payer MEDICARE, SELFPAY ==
[2021-10-07 08:53] VITALS: BP 137/91; PULSE 60; RESP 18; TEMP 36.3; O2SAT 98; BMI 29.9
--- NOTE | 2021-10-07 09:12 | HMH.PAINSOAP ---
[facility] Pain Management SOAP Note Subjective:: Patient is a pleasant 76-year-old female who presents today for follow-up after a bilateral intra-articular knee injections on September 06, 2021. We are currently treating this patient for osteoarthritis of bilateral knees and bilateral sacroiliitis. We have been managing this patient with injective therapy. After her bilateral intra-articular knee injections, patient had significant relief of 70-80% for the first week but feels like the injections are starting to wear off. Denies any issues after the injection. We have also been on SI injections with this patient in the past that helped a while. Today, patient states that she has been having a lot of discomfort on her left knee especially around the lateral portion of the left knee and around the left pes anserine. I discussed with this patient previously that it might be beneficial for her to see orthopedics. Patient says that she does not want to move forward with any surgical interventions at this time. She says that she takes care of her son who has MS and he is a total care. For pain, she takes arthritis strength Tylenol and has been using a lot of topical creams such as Voltaren gel and IcyHot. Additionally, she also has some tramadol at home that we have prescribed previously. She says that she takes these when her pain is very severe. She is taking Xarelto and because of this, she cannot take any anti-inflammatory medications. She says that these are helping manage her pain. She rates her pain today as 7 out of 10. Review of Systems: General: No recent weight changes, no fever, no sleep disturbances Respiratory: No cough, no shortness of air, no recurring pulmonary infections Cardiovascular/peripheral vascular: No chest pain, no palpitations, no edema, no shortness of breath Gastrointestinal: No new onset incontinence, normal bowel movements reported Genitourinary: No new onset incontinence Musculoskeletal: Bilateral knee pain Psychiatric: [Normal mood/affect] Neurological: [Denies weakness in extremities], [denies balance issues] Objective:: Physical Exam: General: Alert and oriented x3, no acute distress, pleasant and cooperative Lungs: Respirations even and unlabored, symmetrical chest expansion Eyes: PERRL Musculoskeletal: Limited range of motion bilateral knees secondary to pain, patient is tender to palpation around the left pes anserine, no swelling noted in bilateral knees Neurological: Speech clear, no gross sensory deficit Assessment:: Sacroiliitis, osteoarthritis of bilateral knees Plan:: Patient presents today with chronic bilateral knee pain. She recently had bilateral knee intra-articular injections that provided significant relief for the first week but is starting to wear off. We have been managing this patient with injective therapy. Patient is not interested in any referral to orthopedics at this time. I have also discussed with her that it might help her to try genicular nerve blocks and possibly genicular nerve ablation. She says that she is not ready for these interventions yet. Patient says that she will call us if she needs a repeat injection. I discussed with her that we can only do the joint injections every 3 to 4 months. Patient currently has some tramadol 50 mg at home. She does not want any refills at this time. She can call the clinic if she needs refills on this medication. Patient has been instructed to contact the clinic with any concerns before the next appointment. Dr. Eaton has reviewed this note and agrees with this plan of care. This note was dictated using voice recognition software and make contain errors or omissions. [facility] History Medical History: Reports:: Atrial Fibrillation, Hyperlipidemia, Hypertension Denies:: Cancer, Diabetes Mellitus Type 1, Diabetes Mellitus Type 2, MRSA, Seizures *Have you ever received a pneumonia vaccine?: Yes *Have you received a flu vaccine this season?: Ye
== END ==
PROVIDERS: Visit Provider Student in an Organized Health Care Education/Training Program
DX: M46.1 Sacroiliitis, not elsewhere classified (principal); M17.0 Bilateral primary osteoarthritis of knee
CPT/HCPCS: 99212; G0463

== ENCOUNTER 2021-11-20 08:48 | Emergency (ER) | payer MEDICARE, SELFPAY ==
[2021-11-20 09:13] VITALS: BP 144/84; PULSE 68; RESP 16; TEMP 37.1; O2SAT 98; BMI 29.9
--- NOTE | 2021-11-20 09:22 | HMH.EDUTC ---
[facility] [place] Clinical Impression: Neck pain Headache Qualifiers: Headache type: unspecified Headache chronicity pattern: acute headache Intractability: intractable Qualified Code(s): R51.9 - Headache, unspecified Disposition: Home, Self-Care Condition on Discharge: Good Instructions: DI for Headache, DI for Neck Pain Additional Instructions: Follow-up results of your CAT scan of your neck with your primary care provider this afternoon. [place] as needed for pain. Additional instructions for HEADACHE: See your physician as soon as possible for further evaluation. Return immediately if worsening headache, vomiting, problems with vision or speech, fever, numbness or weakness of the extremities. Additional instructions for NECK PAIN: See your physician as soon as possible for further evaluation. Return immediately if neck pain becomes intolerable, or if fever, numbness or weakness of your arms or legs, loss of control of your bowels or bladder. Additional instructions for CONTROLLED SUBSTANCES: You have been prescribed a medication that is a controlled substance. Controlled substances include pain medications known as opiates and sedative nerve medications known as benzodiazepines. Tramadol, fioricet, and gabapentin are also controlled substances. Some common opiates include: Codeine (such as Tylenol #3) Hydrocodone (Vicodin, Lortab, Lorcet, [place]) Oxycodone (Percocet, Percodan, Oxycodone, Oxy IR) Some common benzodiazepines include: Diazepam (Valium) Lorazepam (Ativan) Alprazolam (Xanax) Clonazepam (Klonopin) Oxazepam (Serax) All of these controlled substances are highly addictive and frequently abused. Misuse can and frequently does lead to addiction as well as overdose and . Medication should be stored in a locked cabinet or other secure storage unit. Do not store the medication in a motor vehicle. Short term supplies, 3 days or less, are prescribed because of the highly addictive nature of the medication. Any of the controlled substance medication NOT taken should be disposed of properly and NOT SAVED. The recommended method of disposing of unused medications is: Place the medicines in a sealable plastic bag. If the medicine is a solid, crush it or add water to dissolve it. Add something undesirable (cat litter, coffee grounds, etc.) Dispose of sealed bag in household trash Do not flush or pour unused medicines down a sink or drain. Controlled substances should not be shared, given away or sold. Because of the addictive nature and frequent abuse, these medications are sometimes stolen. These medications should be kept in a safe place where they cannot be stolen. Do not keep them in your car or purse. Lost or stolen prescriptions for controlled substances WILL NOT BE REFILLED in this emergency department, regardless of whether a police report was filed. Prescriptions: Hydrocod/Acet 5/325 mg [[place] 5/325mg tablet] 1 tab PO Q6HP PRN #10 tab PRN Reason: Pain Transmission Status: Received by [id number] Referrals: Juan Schaefer MD [Primary Care Provider] - Medical Decision Making - Medical Records Medical records reviewed: No: I reviewed the patient's medical records. - Emanuel Inquiry Pt receiving controlled substance: No Vital Signs: 11/20/21 09:13 11/20/21 09:54 11/20/21 10:01 Temperature 98.7 F 98.7 F Temperature Source Oral Oral Pulse Rate Pulse Rate [Left] 68 65 64 Respiratory Rate 16 17 Blood Pressure Blood Pressure [Right Arm] 144/84 H 165/84 H 149/74 H Blood Pressure Mean [Right Arm] 104 111 99 Blood Pressure Source [Right Arm] Blood Pressure Position [Right Arm] Sitting 02 Sat by Pulse Oximetry 98 99 97 Oxygen Delivery Method Room Air Room Air 11/20/21 10:59 11/20/21 11:03 Temperature 98.7 F Temperature Source Oral Pulse Rate 60 Pulse Rate [Left] 58 L Respiratory Rate 17 Blood Pressure 159/80 H Blood Pre
--- NOTE | 2021-11-20 09:52 | HMH.EDGENADL ---
ED Disposition Clinical Impression: Neck pain Headache Qualifiers: Headache type: unspecified Headache chronicity pattern: acute headache Intractability: intractable Qualified Code(s): R51.9 - Headache, unspecified Disposition: Home, Self-Care Condition on Discharge: Fair Instructions: DI for Headache, DI for Neck Pain Additional Instructions: Follow-up results of your CAT scan of your neck with your primary care provider this afternoon. [place] as needed for pain. Additional instructions for HEADACHE: See your physician as soon as possible for further evaluation. Return immediately if worsening headache, vomiting, problems with vision or speech, fever, numbness or weakness of the extremities. Additional instructions for NECK PAIN: See your physician as soon as possible for further evaluation. Return immediately if neck pain becomes intolerable, or if fever, numbness or weakness of your arms or legs, loss of control of your bowels or bladder. Additional instructions for CONTROLLED SUBSTANCES: You have been prescribed a medication that is a controlled substance. Controlled substances include pain medications known as opiates and sedative nerve medications known as benzodiazepines. Tramadol, fioricet, and gabapentin are also controlled substances. Some common opiates include: Codeine (such as Tylenol #3) Hydrocodone (Vicodin, Lortab, Lorcet, [place]) Oxycodone (Percocet, Percodan, Oxycodone, Oxy IR) Some common benzodiazepines include: Diazepam (Valium) Lorazepam (Ativan) Alprazolam (Xanax) Clonazepam (Klonopin) Oxazepam (Serax) All of these controlled substances are highly addictive and frequently abused. Misuse can and frequently does lead to addiction as well as overdose and . Medication should be stored in a locked cabinet or other secure storage unit. Do not store the medication in a motor vehicle. Short term supplies, 3 days or less, are prescribed because of the highly addictive nature of the medication. Any of the controlled substance medication NOT taken should be disposed of properly and NOT SAVED. The recommended method of disposing of unused medications is: Place the medicines in a sealable plastic bag. If the medicine is a solid, crush it or add water to dissolve it. Add something undesirable (cat litter, coffee grounds, etc.) Dispose of sealed bag in household trash Do not flush or pour unused medicines down a sink or drain. Controlled substances should not be shared, given away or sold. Because of the addictive nature and frequent abuse, these medications are sometimes stolen. These medications should be kept in a safe place where they cannot be stolen. Do not keep them in your car or purse. Lost or stolen prescriptions for controlled substances WILL NOT BE REFILLED in this emergency department, regardless of whether a police report was filed. Prescriptions: Hydrocod/Acet 5/325 mg [[place] 5/325mg tablet] 1 tab PO Q6HP PRN #10 tab PRN Reason: Pain Transmission Status: Received by [id number] Referrals: Juan Schaefer MD [Primary Care Provider] - - Critical Care Critical Care Time: No Attestation: On 11/20/21, the high probability of a clinically significant, sudden or life threatening deterioration of the following system(s) required my full and direct attention, intervention and personal management. The time I documented below is in addition to time spent performing reported procedures but includes the following listed in this critical care notation. Medical Decision Making - Emanuel Inquiry Pt receiving controlled substance: No Vital Signs: 11/20/21 09:13 11/20/21 09:54 11/20/21 10:01 Temperature 98.7 F 98.7 F Temperature Source Oral Oral Pulse Rate Pulse Rate [Left] 68 65 64 Respiratory Rate 16 17 Blood Pressure Blood Pressure [Right Arm] 144/84 H 165/84 H 149/74 H Blood Pressure Mean [Right Arm] 104 111 99 Blood Pressure
--- NOTE | 2021-11-20 09:53 | PC.NURSE ---
XENIA NDIAYE at
[2021-11-20 09:54] VITALS: BP 165/84; PULSE 65; RESP 17; TEMP 37.1; O2SAT 99; BMI 29.9
--- NOTE | 2021-11-20 09:58 | CT_ITS ---
FINAL REPORT CLINICAL HISTORY: neck pain/stiffness, headache, pt stated that these symptoms have been going on for the last 2 days. FINDINGS: Axial CT images of the cervical spine were obtained without contrast. Sagittal and coronal reformatted images were also obtained. This study was performed with techniques to keep radiation doses as low as reasonably achievable (ALARA). Individualized dose reduction techniques using automated exposure control or adjustment of mA and/or kV according to the patient's size were employed. There is no evidence of fracture or dislocation. Mild and moderate degenerative changes are present. There is mild retrolisthesis of C3 on 4. There is no evidence of canal stenosis. C2-3: There is no significant canal stenosis or neural foraminal narrowing. C3-4: Disc osteophyte complex is present with moderate bilateral neural foraminal narrowing. C4-5: Disc osteophyte complex is present with moderate right neural foraminal narrowing. C5-6: There is no significant canal stenosis or neural foraminal narrowing. C6-7: Disc osteophyte complex is present with mild right and moderate left neural foraminal narrowing. C7-T1: There is no significant canal stenosis or neural foraminal narrowing. 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 IMPRESSION: Multilevel degenerative disc disease and spondylosis. Reviewed, Interpreted and Dictated by Bari Wilkins III, MD Transcribed by Ana Argueta Authenticated and [facility]
--- NOTE | 2021-11-20 09:58 | CT_ITS ---
FINAL REPORT CLINICAL HISTORY: neck pain/stiffness, headache, pt stated that these symptoms have been going on for the last 2 days. FINDINGS: Axial images of the head were obtained without contrast. Coronal reformatted images were also obtained. This study was performed with techniques to keep radiation doses as low as reasonably achievable (ALARA). Individualized dose reduction techniques using automated exposure control or adjustment of mA and/or kV according to the patient''s size were employed. There is generalized age-appropriate atrophy. Periventricular low-attenuation areas are seen consistent with moderate chronic ischemic changes. There is no evidence of intracranial hemorrhage or mass. There is no evidence of acute infarct. There is no evidence of shift of the midline structures. No skull abnormality is seen on the bone window images. IMPRESSION: Atrophy and moderate periventricular chronic ischemic changes. No acute intracranial abnormality identified. Reviewed, Interpreted and Dictated by Bari Wilkins III, MD Transcribed by Ana Argueta Authenticated and [facility]
[2021-11-20 10:01] VITALS: BP 149/74; PULSE 64; O2SAT 97
--- NOTE | 2021-11-20 10:04 | PC.NURSE ---
pt to radiology by wheelchair with instructional technology coordinator
--- NOTE | 2021-11-20 10:22 | PC.NURSE ---
pt back from radiology
--- NOTE | 2021-11-20 10:24 | PC.NURSE ---
pt sitting in a chair per pt request for comfort. updated pt that we will be waiting on CT reports. call light in reach. no needs at this time.
--- NOTE | 2021-11-20 10:53 | PC.NURSE ---
Rounded on patient; pt requesting to leave... MAT Isaac and ER aware
--- NOTE | 2021-11-20 10:58 | PC.NURSE ---
at the bedside speaking with pt
[2021-11-20 10:59] VITALS: BP 159/80; PULSE 58; O2SAT 97
--- NOTE | 2021-11-20 10:59 | PC.NURSE ---
ER MD at speaking with patient regarding update on POC; pt is requesting to leave at this time due to needing to care for her son
[2021-11-20 11:03] VITALS: BP 159/80; PULSE 60; RESP 17; TEMP 37.1; O2SAT 98
== END 2021-11-20 11:06 | disposition home or self-care (01) ==
LOC: UTC 08:52 → ER 09:38
PROVIDERS: Emergency Provider Emergency Medicine; PCP Internal Medicine Adolescent Medicine
DX: M54.2 Cervicalgia (principal); R51.9 Headache, unspecified; M43.6 Torticollis; I48.91 Unspecified atrial fibrillation; Z79.01 Long term (current) use of anticoagulants; I10 Essential (primary) hypertension; E78.5 Hyperlipidemia, unspecified
CPT/HCPCS: 70450; 72125; 99284

== ENCOUNTER 2022-05-14 19:07 | Emergency (ER) | payer MEDICARE, SELFPAY ==
--- NOTE | 2022-05-14 18:58 | ECG_ITS ---
APPROVED REPORT Exam: Resting ECG HR:147 bpm ECG Measurements Heart Rate 147 AXES TX 123 P 191 QRSd 106 QRS 23 QT 211 T 0 QTc 295 Conclusion SINUS TACHYCARDIA, POSSIBLE ATRIAL FLUTTER NONSPECIFIC ST & T-WAVE ABNORMALITY ABNORMAL RHYTHM ECG UNCONFIRMED REPORT Electronically signed by : Juan Schaefer MD 05/16/2022 08:54:06
--- NOTE | 2022-05-14 19:05 | ECG_ITS ---
APPROVED REPORT Exam: Resting ECG HR:70 bpm ECG Measurements Heart Rate 70 AXES MS 172 P 66 QRSd 90 QRS 51 QT 394 T 58 QTc 415 Conclusion SINUS RHYTHM MINIMAL ST DEPRESSION [0.025+ mV ST DEPRESSION] BORDERLINE ECG UNCONFIRMED REPORT Electronically signed by : Juan Schaefer MD 05/16/2022 08:53:54
[2022-05-14 19:08] VITALS: BP 136/97; PULSE 146; RESP 20; TEMP 36.7; O2SAT 99; BMI 29.5
--- NOTE | 2022-05-14 19:11 | XR_ITS ---
PROCEDURE INFORMATION: Exam: XR Chest Exam date and time: 05/14/2022 7:19 PM Age: 76 years old Clinical indication: Pain; Chest pressure; Additional info: Cp TECHNIQUE: Imaging protocol: Radiologic exam of the chest. Views: 2 views. COMPARISON: CR XR CHEST PORTABLE 05/04/2020 11:38 AM FINDINGS: Lungs: No vascular congestion. Pleural spaces: No pleural effusion. No pneumothorax. Heart/Mediastinum: Heart is slightly enlarged. Bones/joints: No fractures or bone lesions. IMPRESSION: 1. No acute pulmonary disease. 2. Mild cardiomegaly.
[2022-05-14 19:19] LABS: Basophils # 0.1 K/mm3 (0-0.2); Basophils % 1.9 % (0.1-2.0); Eosinophils # 0.3 K/mm3 (0.0-0.4); Eosinophils % 5.1 % (0.1-12.0); Hematocrit 43.4 % (37.0-47.0); Hemoglobin 14.3 g/dL (12.2-16.2); Lymphocytes # 2.4 K/mm3 (0.7-4.5); Mean Corpuscular Hemoglobin 30.1 pg (27.0-31.2); Mean Corpuscular Volume 91.3 fl (81-99); Mean Platelet Volume 8.1 fl (7.4-10.4); Monocytes # 0.5 K/mm3 (0.1-1.0); Monocytes % 7.3 % (1.7-9.3); Neutrophils % 47.7 % (37.0-80.0); Platelet Count 290 K/mm3 (142-424); Red Blood Count 4.75 M/mm3 (4.20-5.40); Red Cell Distribution Width 13.5 % (11.5-17.5); White Blood Count 6.2 K/mm3 (4.8-10.8)
[2022-05-14 19:28] LABS: Chloride 104 mmol/L (98-107); Sodium 140 mmol/L (136-145)
[2022-05-14 19:29] LABS: Potassium 3.3 mmoL/L (3.5-5.1)
[2022-05-14 19:32] LABS: Anion Gap 14.3 mEq/L (5-15); Blood Urea Nitrogen 16 mg/dl (7-17); Calcium 9.3 mg/dl (8.4-10.2); Carbon Dioxide 25 mmol/L (22.0-30.0); Creatinine Clearance Estimated 58 mL/min (50-200); Estimated Glomerular Filt Rate 81 ml/min (>60); GFR (African American) 98 ML/MIN (>60); Glucose 125 mg/dl (74-100)
--- NOTE | 2022-05-14 19:49 | HMH.EDCP ---
Discharge Plan Disposition Chief Complaint: Chest Pain Prescriptions Prescriptions: No Action hydrochlorothiazide 25 mg tablet 25 mg PO DAILY levothyroxine 50 MCG tablet 50 mcg PO DAILY multivitamin with folic acid 1 EACH tablet 1 each PO DAILY shaos-[id number]-olr-epa-fish oil 1 EACH capsule 1 each PO DAILY tramadol 50 MG tablet 50 mg PO TID bisoprolol fumarate 10 MG tablet 10 mg PO DAILY rivaroxaban 20 MG tablet 20 mg PO DAILY metoprolol tartrate 50 MG tablet 50 mg PO BID rosuvastatin 5 MG tablet 5 mg PO DAILY hydrocodone-acetaminophen 1 TAB tablet 1 tab PO Q6HP PRN (Reason: Pain) Qty: 10 0RF loratadine 10 MG tablet,disintegrating 10 mg PO DAILY cholecalciferol (vitamin D3) 25 MCG tablet 25 mcg PO DAILY Referrals Follow up/Referrals: Provider,Referral, MD [Primary Care Provider] - See instructions Discharge ED Provider: Nelson Sarmiento Chest Pain HPI General Chief Complaint: Chest Pain Stated Complaint: cp Time Seen by Provider: 05/14/22 19:10 Mode of Arrival: Wheelchair Source of Information: Patient Limitations: No Limitations Description of Symptoms (Recalled from ER Triage Doc. by RN): pt c/o midsternal chest pressure that started a hour ago. pt has hx afib Related Data Home Medications Medication Instructions Recorded Confirmed levothyroxine 50 mcg tablet 50 mcg PO DAILY Hypothyroidism 03/26/20 10/07/21 multivitamin with folic acid 400 1 each PO DAILY Supplement 03/26/20 10/07/21 mcg tablet omega3 300 mg-dha,epa 250 mg-other 1 each PO DAILY Heart health 03/26/20 10/07/21 omega 3s-fish oil 1,000 mg capsule cholecalciferol (vitamin D3) 25 25 mcg PO DAILY Supplement 05/04/20 10/07/21 mcg (1,000 unit) tablet loratadine 10 mg disintegrating 10 mg PO DAILY Allergies 05/04/20 10/07/21 tablet hydrochlorothiazide 25 mg tablet 25 mg PO DAILY High blood pressure 05/14/20 10/07/21 bisoprolol fumarate 10 mg tablet 10 mg PO DAILY High blood pressure 06/01/20 10/07/21 rivaroxaban 20 mg tablet 20 mg PO DAILY Blood thinner 06/01/20 10/07/21 tramadol 50 mg tablet 50 mg PO TID Pain 06/01/20 10/07/21 metoprolol tartrate 50 mg tablet 50 mg PO BID High blood pressure 09/06/21 10/07/21 rosuvastatin 5 mg tablet 5 mg PO DAILY High cholesterol 09/06/21 10/07/21 Previous Rx's Medication Instructions Recorded hydrocodone 5 mg-acetaminophen 325 1 tab PO Q6HP PRN Pain #10 tabs 11/20/21 mg tablet Allergies Allergy/AdvReac Type Severity Reaction Status Date / Time No Known Allergies Allergy Verified 11/20/21 09:16 [facility] Disclaimer: The information contained in this section may have been updated after the patient was seen, as this information can be updated by other users. Medical History (Updated 11/20/21 @ 11:03 by Gold Gomez MD) Chest pain Dyspnea Sinus bradycardia Social History Smoking Status: Never smoker alcohol intake: never current occupational status: retired Travel in the last 8 weeks: None household members: children housing: house current occupational exposures/hazards: No caffeine: Yes Medical Decision Making Vital Signs: 05/14/22 19:08 Temperature 98.0 F Temperature Source Oral Pulse Rate [Right] 146 H Respiratory Rate 20 Blood Pressure [Right Arm] 136/97 H Blood Pressure Mean [Right Arm] 110 02 Sat by Pulse Oximetry 99 Lab Data Lab Results 05/14/22 19:08: WBC 6.2, RBC 4.75, Hgb 14.3, Hct 43.4, MCV 91.3, MCH 30.1, MCHC 33.0, RDW 13.5, Plt Count 290, MPV 8.1, Neut % (Auto) 47.7, Lymph % (Auto) 38.0, Lyon % (Auto) 7.3, Eos % (Auto) 5.1, Baso % (Auto) 1.9, Neut # (Auto) 3.0, Lymph # (Auto) 2.4, Lyon # (Auto) 0.5, Eos # (Auto) 0.3, Baso # (Auto) 0.1 05/14/22 19:08: Sodium 140, Potassium 3.3 L, Chloride 104, Carbon Dioxide 25, Anion Gap 14.3, BUN 16, Creatinine 0.70, Estimated Creat Clear 58, Estimated GFR 81, Est GFR ( Amer) 98, Glucose 125 H, Calcium 9.3
--- NOTE | 2022-05-14 19:49 | HMH.EDGENADL ---
Discharge Plan Disposition Patient Disposition: Home, Self-Care Prescriptions Prescriptions: No Action hydrochlorothiazide 25 mg tablet 25 mg PO DAILY levothyroxine 50 MCG tablet 50 mcg PO DAILY multivitamin with folic acid 1 EACH tablet 1 each PO DAILY jhopf-[id number]-mvh-epa-fish oil 1 EACH capsule 1 each PO DAILY tramadol 50 MG tablet 50 mg PO TID bisoprolol fumarate 10 MG tablet 10 mg PO DAILY rivaroxaban 20 MG tablet 20 mg PO DAILY metoprolol tartrate 50 MG tablet 50 mg PO BID rosuvastatin 5 MG tablet 5 mg PO DAILY hydrocodone-acetaminophen 1 TAB tablet 1 tab PO Q6HP PRN (Reason: Pain) Qty: 10 0RF loratadine 10 MG tablet,disintegrating 10 mg PO DAILY cholecalciferol (vitamin D3) 25 MCG tablet 25 mcg PO DAILY Referrals Follow up/Referrals: Andrey Andersen MD [Staff Physician] - See instructions Provider,MD Gosia [Referring] - See instructions Juan Schaefer MD [Primary Care Provider] - See instructions Clinical Impressions Clinical Impression: Atrial fibrillation with rapid ventricular response, Hypokalemia, Elevated troponin Instructions Patient Instructions: DI for Chest Pain Discharge ED Provider: Nelson Sarmiento General Adult HPI <Nelson Sarmiento MD - Last Filed: 05/14/22 20:36> General Chief complaint: Chest Pain Stated complaint: cp Time Seen by Provider: 05/14/22 19:10 Mode of Arrival: Wheelchair Source of Information: Patient Limitations: No Limitations Description of Symptoms (Recalled from ER Triage Doc. by RN): pt c/o midsternal chest pressure that started a hour ago. pt has hx afib History of Present Illness HPI narrative: This is a 76-year-old female with history of paroxysmal A. fib currently on Xarelto, hypothyroidism, ACS, hyperlipidemia who is presenting with palpitations. Patient states that palpitations started approximately 1 hour prior to arrival. Was initially 8 out of 10, now 3 out of 10 on arrival. She describes it as a pressure/pain, does not radiate, not associated with nausea, vomiting, diaphoresis, is associated with feeling of shortness of breath. Patient also feels generally fatigued and dizzy. Denies fevers, chills, recent sick symptoms, abdominal pain, or any other concerning history. She has been compliant with her medications. Patient states that she goes in A. fib when she has stressful conditions in her life, she has had family stressors as well as one of her best friends passing away, so she attributes stress to this as well. Related Data Home Medications Medication Instructions Recorded Confirmed levothyroxine 50 mcg tablet 50 mcg PO DAILY Hypothyroidism 03/26/20 10/07/21 multivitamin with folic acid 400 1 each PO DAILY Supplement 03/26/20 10/07/21 mcg tablet omega3 300 mg-dha,epa 250 mg-other 1 each PO DAILY Heart health 03/26/20 10/07/21 omega 3s-fish oil 1,000 mg capsule cholecalciferol (vitamin D3) 25 25 mcg PO DAILY Supplement 05/04/20 10/07/21 mcg (1,000 unit) tablet loratadine 10 mg disintegrating 10 mg PO DAILY Allergies 05/04/20 10/07/21 tablet hydrochlorothiazide 25 mg tablet 25 mg PO DAILY High blood pressure 05/14/20 10/07/21 bisoprolol fumarate 10 mg tablet 10 mg PO DAILY High blood pressure 06/01/20 10/07/21 rivaroxaban 20 mg tablet 20 mg PO DAILY Blood thinner 06/01/20 10/07/21 tramadol 50 mg tablet 50 mg PO TID Pain 06/01/20 10/07/21 metoprolol tartrate 50 mg tablet 50 mg PO BID High blood pressure 09/06/21 10/07/21 rosuvastatin 5 mg tablet 5 mg PO DAILY High cholesterol 09/06/21 10/07/21 Previous Rx's Medication Instructions Recorded hydrocodone 5 mg-acetaminophen 325 1 tab PO Q6HP PRN Pain #10 tabs 11/20/21 mg tablet Allergies Allergy/AdvReac Type Severity Reaction Status Date / Time No Known Allergies Allergy Verified 11/20/21 09:16 [facility] <Nelson Sarmiento MD - Last Filed: 05/14/22 20:36> [facility] Disclaimer: The information contained in t
[2022-05-14 20:00] VITALS: BP 142/82; PULSE 77; RESP 16; O2SAT 97
[2022-05-14 20:08] LABS: Troponin I < 0.01 ng/ml (0.00-0.034)
[2022-05-14 20:30] VITALS: BP 145/69; PULSE 70; RESP 14; O2SAT 97
[2022-05-14 21:00] VITALS: BP 136/99; PULSE 52; RESP 16; O2SAT 96
[2022-05-14 21:31] VITALS: BP 139/80; PULSE 51; RESP 14; O2SAT 96
[2022-05-14 22:25] LABS: Troponin I 0.09 ng/ml (0.00-0.034)
[2022-05-14 22:58] VITALS: BP 142/73; PULSE 145; PULSE 62; RESP 16; TEMP 36.6; O2SAT 96
== END 2022-05-14 23:01 | disposition home or self-care (01) ==
PROVIDERS: Emergency Medicine; Emergency Provider Emergency Medicine; PCP Internal Medicine Adolescent Medicine
DX: R07.9 Chest pain, unspecified (principal); R00.2 Palpitations; R42 Dizziness and giddiness; R00.1 Bradycardia, unspecified; R11.2 Nausea with vomiting, unspecified; R61 Generalized hyperhidrosis; R53.82 Chronic fatigue, unspecified; R01.1 Cardiac murmur, unspecified; I48.0 Paroxysmal atrial fibrillation; I25.10 Atherosclerotic heart disease of native coronary artery without angina pectoris; I24.9 Acute ischemic heart disease, unspecified; E78.5 Hyperlipidemia, unspecified; E03.9 Hypothyroidism, unspecified; Z79.01 Long term (current) use of anticoagulants; Z79.02 Long term (current) use of antithrombotics/antiplatelets; Z79.1 Long term (current) use of non-steroidal anti-inflammatories (NSAID); Z79.82 Long term (current) use of aspirin; Z79.899 Other long term (current) drug therapy
CPT/HCPCS: 71046; 80048; 84484; 85025; 93005; 99284; J3475

== ENCOUNTER → 2022-05-15 10:00 | Outpatient (CLI) | payer MEDICARE, SELFPAY ==
[2022-05-15 10:39] LABS: Troponin I 0.16 ng/ml (0.00-0.034)
== END ==
PROVIDERS: PCP Internal Medicine Adolescent Medicine; Visit Provider Nurse Practitioner
DX: I21.4 Non-ST elevation (NSTEMI) myocardial infarction (principal)
CPT/HCPCS: 36415; 84484

== ENCOUNTER 2022-05-16 08:56 | Day surgery (SDC) | payer MEDICARE, SELFPAY ==
[2022-05-16] VITALS (14 sets, daily range): BP systolic 112–162; BP diastolic 48–82; PULSE 45–70; RESP 16–20; O2SAT 97–100; BMI 28.8
--- NOTE | 2022-05-16 07:49 | IR_ITS ---
APPROVED REPORT Patient Location: Outpatient Manager Housekeeping: EVON Hernandez RT (R) PROCEDURES Left heart catheterization Left ventriculogram Selective coronary angiogram Intravascular ultrasound of the LAD Drug-eluting stent deployment to the proximal and mid LAD in a contiguous manner with 1 solitary stent INDICATION Coronary artery disease, Acute non-ST elevation myocardial infarction, MLA of 2.1 on intravascular ultrasound Informed consent was obtained prior to the procedure. COMPLICATIONS NONE Estimated Blood Loss: LESS THAN 10 ML TECHNIQUE One percent lidocaine used to anesthetize the right anterior aspect of the wrist. The right radial artery was accessed via the Seldinger technique. A 6 Tamazight sheath was placed in the right radial artery. 2.5 mg of verapamil, 800 mcg of nitroglycerin, 1mg Lidocaine and 5000 U Heparin were given through the arterial sheath. The papa catheter was also used to perform left heart catheterization, left ventriculogram and selective coronary angiogram. At the end the diagnostic angiogram therapeutic heparin was administered giving a therapeutic ACT and the guide catheter was placed in the left main artery followed by a Choice PT extra-support wire being placed down the LAD. A nevus FFR catheter was advanced into the proximal left main artery with attempts to equalize and perform FFR on the LAD however we were unable to synchronize and equalize the apparatus. As a result the transducer on the catheter was replaced and a new nevus FFR catheter was then introduced over the wire and the entire FFR procedure attempted. There were mechanical areas with the FFR equipment and we are unable to obtain a simultaneous arterial and catheter pressure. After using 2 FFR catheters and replacing the transducer on the manifold it was decided to perform an intravascular ultrasound interrogation to determine if the angiographic indeterminate LAD stenosis was significant. Intravascular ultrasound probe was advanced and several areas of stenosis were identified which ranged from an MLA as low as 2.1mm??? to 3.6 mm??? to as high as 4.4 mm???. As result of 3.5 x 38 mm resolute Raul stent was deployed in the proximal to mid LAD and deployed at 12 cam. There was excellent distal transitioning of the stent into the mid LAD. A 3.75 x 12 mm noncompliant balloon was deployed at 20 cam in the ostial proximal and midportion of the stent to post dilate giving excellent stent apposition and expansion along the larger proximal LAD vessel. At the end the procedure the apparatus was removed the sheath was removed good hemostasis was achieved using TR banding patient was transferred to the postop putting in stable condition ANGIOGRAPHIC RESULTS The left main artery Normal The left anterior descending artery Has proximal 40 and 50% stenoses with mid vessel 50% stenoses The circumflex artery Nondominant normal The right coronary artery Dominant normal The KRISHNAMURTHY ventriculogram reveals Normal 65% The left ventricular end-diastolic pressure 10 to 15 mmHg IMPRESSION Severe proximal LAD stenosis which is the culprit for patient's elevated troponin level during her tachyarrhythmia successful stenting of the proximal to mid LAD reducing the hemodynamically severe stenosis to 0% with 1 drug-eluting stent Normal ejection fraction Borderline LVEDP PLAN 1. Plavix 75 mg daily plus aspirin 81 mg daily combined with Xarelto 20 mg daily for 30 days. At the end of 30 days aspirin will be discontinued and Plavix and Xarelto will be continued 2. LDL less than 55 but she with high intensity statin 3. Beta-elizabeth for rate control in the event patient has paroxysmal atrial fibrillation 4. Cardi
[2022-05-16 11:47] LABS: CATHL Activated Clotting Time > 400 SEC (74-125)
--- NOTE | 2022-05-16 15:24 | HMH.PHACL ---
PHA Recruiting Associate Discharge Med Equipment Analyst: Lizbeth Arriola Urszula has received discharge medication counseling on the following medications: ASPIRIN 81 MG DAILY X30 DAYS CLOPIDOGREL 75 MG DAILY IRBESARTAN 75 MG DAILY METOPROLOL TARTRATE 50 MG BID ROSUVASTATIN 5 MG HS
== END 2022-05-16 15:30 | disposition home or self-care (01) ==
PROVIDERS: PCP Internal Medicine Adolescent Medicine; Visit Provider Internal Medicine
DX: I21.4 Non-ST elevation (NSTEMI) myocardial infarction (principal); I48.0 Paroxysmal atrial fibrillation; I10 Essential (primary) hypertension; Z79.899 Other long term (current) drug therapy; Z79.01 Long term (current) use of anticoagulants
CPT/HCPCS: 85347; 92928; 92978; 93458; 99152; 99153; C1725; C1769; C1876; C9600; J1644; Q9967

== ENCOUNTER → 2022-05-26 14:54 | Outpatient (CLI) | payer MEDICARE, SELFPAY ==
--- NOTE | 2022-05-26 14:57 | CA_ITS ---
APPROVED REPORT EXAM: Comprehensive 2D, Doppler, and color-flow Echocardiogram Manager Pricing: Veena Sage RVT Ht: 5 ft 4 in Wt: 168lbs BSA: 1.82 BP: 164/95 mmHg Indications: A-FIB,NSTEMI,CAD,CP,HTN,HLD,RODRÍGUEZ 2D Dimensions LVOT 2.25 cm (M/F) 1.5-2.5 LA Volume 30.70 mL LA Volume Index 16.87 mL/m2 (M/F) 16-34 M-Mode Dimensions RVDd 2.43 cm (0.9-2.6) LA Diam 3.70 cm (1.9-4.0) LVDd 4.33 cm (3.5-5.7) Ao Diam 2.53 cm (2.0-3.7) LVDs 2.66 cm (3.5-5.7) IVSd 1.25 cm (0.6-1.1) PWd 0.42 cm (0.6-1.1) EF (Teich) 69.20% FS 38.60% EDV (Teich) 84.40 mL TAPSE 2.02 (<1.7) ESV (Teich) 26.00 mL LV Diastology E Decel Time 323.00 (160-240 msec) E/A Ratio 0.6 MED E' 6.20 (< 7 cm/sec) E'/MED E' Ratio 6.97 (>14) LAT E' 6.00 (<10 cm/sec) E/LAT E' Ratio 7.20 (>14) Aortic Valve AO Peak GR. 6.90 mmHg Mitral Valve MV E Max Bert. 43.00 (40-130 cm/s) MV A Velocity 78.00 (40-130 cm/s) E/A Ratio 0.55 MV Decel. Time 323.00 (160-240 ms) MV PHT 95.00 ms Pulmonary Valve PV Peak Velocity 56.00 (50-150 cm/s) Tricuspid Valve TR P. Velocity 241.00 cm/s RAP Estimate 10.00 mmHg RVSP 33.20 mmHg Left Ventricle Left atrium is mildly enlarged, left ventricle is normal size mild concentric left ventricular hypertrophy, estimated ejection fraction 45%, there is moderate hypokinesis involving the basal septum, inferior and inferior basal wall. Grade 1 diastolic dysfunction seen without tissue Doppler evidence of raise left atrial pressure. Right Ventricle Right atrium and right ventricle are mildly enlarged with normal contractility. Aortic Valve Aortic valve is minimally thickened and fibrosed there is no aortic stenosis or aortic insufficiency. Mitral Valve Mitral valve is minimally thickened, there is mild mitral regurgitation. Tricuspid Valve Tricuspid grossly normal, there is mild tricuspid regurgitation, calculated right ventricular systolic pressure 30 mmHg. Pulmonic Valve Pulmonic valve is poorly visualized. Great Vessels Aortic root is normal size. Inferior vena cava is normal size with normal inspiratory collapse. Pericardium No significant pericardial effusion noted. Conclusion 1. Biatrial enlargement, normal left ventricular size, mild concentric left ventricular hypertrophy, estimated ejection fraction 45% with segmental wall motion abnormality described above, grade 1 diastolic dysfunction seen without tissue Doppler evidence of raise left atrial pressure. 2. Mildly enlarged right ventricle with normal contractility. 3. Mild mitral and tricuspid regurgitation, calculated right ventricular systolic pressure 30 mmHg. 4. No significant pericardial effusion noted. 5. Inferior vena cava is normal size with normal inspiratory collapse. Electronically signed by : Luis Antonio Quesada MD 05/26/2022 21:30:58
== END ==
PROVIDERS: PCP Internal Medicine; Visit Provider Nurse Practitioner
DX: I10 Essential (primary) hypertension (principal); I21.4 Non-ST elevation (NSTEMI) myocardial infarction; I48.0 Paroxysmal atrial fibrillation
CPT/HCPCS: 93306

== ENCOUNTER → 2022-05-27 15:03 | Outpatient (CLI) | payer MEDICARE, SELFPAY ==
[2022-05-27 17:09] LABS: Basophils # 0.1 K/mm3 (0-0.2); Basophils % 1.9 % (0.1-2.0); Eosinophils # 0.3 K/mm3 (0.0-0.4); Eosinophils % 6.2 % (0.1-12.0); Hematocrit 46.2 % (37.0-47.0); Hemoglobin 14.9 g/dL (12.2-16.2); Lymphocytes # 1.9 K/mm3 (0.7-4.5); Lymphocytes % 37.5 % (10-50); Mean Corpuscular HGB Conc 32.3 g/dL (31.8-35.4); Mean Corpuscular Hemoglobin 30.3 pg (27.0-31.2); Mean Corpuscular Volume 93.9 fl (81-99); Mean Platelet Volume 7.8 fl (7.4-10.4); Monocytes # 0.3 K/mm3 (0.1-1.0); Monocytes % 6.6 % (1.7-9.3); Neutrophils # 2.4 K/mm3 (1.8-7.8); Neutrophils % 47.9 % (37.0-80.0); Platelet Count 302 K/mm3 (142-424); Red Blood Count 4.92 M/mm3 (4.20-5.40); Red Cell Distribution Width 13.5 % (11.5-17.5); White Blood Count 5.1 K/mm3 (4.8-10.8)
[2022-05-27 17:12] LABS: Chloride 103 mmol/L (98-107); Sodium 140 mmol/L (136-145)
[2022-05-27 17:13] LABS: Potassium 4.5 mmoL/L (3.5-5.1)
[2022-05-27 17:15] LABS: Alanine Aminotransferase 21 U/L (12-78); Albumin Level 4.4 g/dl (3.5-5.0); Alkaline Phosphatase 87 U/L (38-126); Anion Gap 11.5 mEq/L (5-15); Aspartate Amino Transferase 34 U/L (14-36); Bilirubin,Direct 0.2 mg/dl (0.0-0.4); Bilirubin,Indirect 0.3 mg/dL (0.0-0.9); Bilirubin,Total 0.5 mg/dl (0.2-1.3); Bilirubin,Unconjugated 0.3 mg/dL (0.0-1.1); Blood Urea Nitrogen 22 mg/dl (7-17); Calcium 9.5 mg/dl (8.4-10.2); Carbon Dioxide 30 mmol/L (22.0-30.0); Cholesterol 178 mg/dl (140-200); Estimated Glomerular Filt Rate 70 ml/min (>60); GFR (African American) 84 ML/MIN (>60); Glucose 102 mg/dl (74-100); Total Protein,Serum 7.3 g/dl (6.3-8.2); Triglycerides 298 mg/dl (30-150); VLDL Cholesterol 60 mg/dL (0-40)
[2022-05-27 17:16] LABS: Chol/HDL Ratio 3.1 (1-3.5); HDL Cholesterol 58 mg/dl (40-60); Magnesium 2.3 mg/dl (1.6-2.3)
[2022-05-27 17:26] LABS: Direct LDL Cholesterol 75.72 mg/dL (100-129)
[2022-05-27 17:32] LABS: Free T4 (Free Thyroxine) 1.32 ng/dl (0.78-2.19)
[2022-05-27 17:46] LABS: Thyroid Stimulating Hormone 0.54 uIU/mL (0.465-4.68)
== END ==
PROVIDERS: PCP Internal Medicine Adolescent Medicine; Visit Provider Nurse Practitioner
DX: I10 Essential (primary) hypertension (principal); I21.4 Non-ST elevation (NSTEMI) myocardial infarction; I25.10 Atherosclerotic heart disease of native coronary artery without angina pectoris; I48.0 Paroxysmal atrial fibrillation; R06.00 Dyspnea, unspecified; R07.89 Other chest pain
CPT/HCPCS: 36415; 80048; 80061; 80076; 83735; 84439; 84443; 85025

== ENCOUNTER 2022-05-30 12:49 | Outpatient (RCR) | payer MEDICARE, SELFPAY | END 2022-07-08 14:00 | disposition home or self-care (01) | LOC: PT 12:49 | PROVIDERS: Visit Provider Internal Medicine | DX: I25.10 Atherosclerotic heart disease of native coronary artery without angina pectoris (principal); Z95.5 Presence of coronary angioplasty implant and graft | CPT/HCPCS: 93798 ==

== ENCOUNTER → 2022-06-26 13:59 | Outpatient (CLI) | payer MEDICARE, SELFPAY ==
[2022-06-26 15:03] LABS: Basophils # 0.1 K/mm3 (0-0.2); Basophils % 1.2 % (0.1-2.0); Eosinophils # 0.3 K/mm3 (0.0-0.4); Eosinophils % 5.6 % (0.1-12.0); Hematocrit 41.1 % (37.0-47.0); Hemoglobin 14.2 g/dL (12.2-16.2); Lymphocytes # 1.4 K/mm3 (0.7-4.5); Lymphocytes % 26.7 % (10-50); Mean Corpuscular HGB Conc 34.4 g/dL (31.8-35.4); Mean Corpuscular Hemoglobin 30.5 pg (27.0-31.2); Mean Corpuscular Volume 88.7 fl (81-99); Mean Platelet Volume 7.9 fl (7.4-10.4); Monocytes # 0.4 K/mm3 (0.1-1.0); Monocytes % 8.1 % (1.7-9.3); Neutrophils # 3.1 K/mm3 (1.8-7.8); Neutrophils % 58.4 % (37.0-80.0); Platelet Count 268 K/mm3 (142-424); Red Blood Count 4.64 M/mm3 (4.20-5.40); Red Cell Distribution Width 13.6 % (11.5-17.5); White Blood Count 5.3 K/mm3 (4.8-10.8)
[2022-06-26 15:37] LABS: Alanine Aminotransferase 36 U/L (12-78); Albumin Level 4.4 g/dl (3.5-5.0); Alkaline Phosphatase 89 U/L (38-126); Aspartate Amino Transferase 47 U/L (14-36); Bilirubin,Direct 0.2 mg/dl (0.0-0.4); Bilirubin,Indirect 0.7 mg/dL (0.0-0.9); Bilirubin,Total 0.9 mg/dl (0.2-1.3); Bilirubin,Unconjugated 0.6 mg/dL (0.0-1.1); Blood Urea Nitrogen 19 mg/dl (7-17); Calcium 9.5 mg/dl (8.4-10.2); Carbon Dioxide 27 mmol/L (22.0-30.0); Chloride 107 mmol/L (98-107); Estimated Glomerular Filt Rate 70 ml/min (>60); GFR (African American) 84 ML/MIN (>60); Glucose 87 mg/dl (74-100); Magnesium 2.1 mg/dl (1.6-2.3); Sodium 140 mmol/L (136-145); Total Protein,Serum 7.2 g/dl (6.3-8.2)
[2022-06-26 15:51] LABS: Free Thyroxine Index 3.5 ug/dL (5.93-13.13); T4 (Thyroxine) 10.1 ug/dl (5.53-11.0); Triiodothryronine (T3) Uptake 35 % (23.5-40.5)
[2022-06-26 16:05] LABS: Thyroid Stimulating Hormone 0.46 uIU/mL (0.465-4.68)
== END ==
PROVIDERS: PCP Internal Medicine Adolescent Medicine; Visit Provider Nurse Practitioner
DX: I10 Essential (primary) hypertension (principal); I21.4 Non-ST elevation (NSTEMI) myocardial infarction; I25.10 Atherosclerotic heart disease of native coronary artery without angina pectoris; I48.0 Paroxysmal atrial fibrillation; R06.00 Dyspnea, unspecified; R07.89 Other chest pain
CPT/HCPCS: 36415; 80048; 80076; 83735; 84436; 84443; 84479; 85025

== ENCOUNTER → 2023-02-05 11:11 | Outpatient (CLI) | payer MEDICARE, SELFPAY ==
--- NOTE | 2023-02-05 | CA_ITS ---
APPROVED REPORT Exam: Pharmacologic Technologist: Asmita Linton, Ht: 5 ft 4 in Wt: 176 lbs BSA: 1.85 m2 HR: 54 bpm BP: 169/79 mmHg Rhythm: SB Medical History Medical History: HTN, , Hyperlipidemia Medications: Metoprolol Tartrate,,,,, Tramadol,,,,, Vit D3,,,,, Plavix,,,,, Levocetirizine,,,,, RoSUVASTATIN,,,,, Multivitamin,,,,, RIvaROXABAN,,,,, Coenzyme Q10,,,,, Hydrocodone-Acetaminohen,,,,, Hydrochlorohiazide,,,,, Allergies: No known drug allergies Cardiac Risk Factors: HTN, Hyperlipidemia, FHX of CAD Stress Test Details Test: LEXISCAN HR Resting HR: 55 bpm Max Heart Rate (APMHR): 142 bpm Max HR Achieved: 79 bpm Target HR (85% APMHR): 121 bpm % of APMHR: 56 Recovery HR: 69 bpm BP Resting BP: 169/79 mmHg Max BP: 169/79 mmHg Recovery BP: 138.0/81.0 mmHg ECG Resting ECG: Sinus bradycardia Stress ECG: No significant ST changes Arrhythmia: Frequent PVCs Clinical Exercise duration: 04:52 min Highest Stage Achieved: Exercise capacity: 1.0 METs Stress ECG Conclusion PT HAD DYSPNEA, BACK PAIN AND DIZZINESS FREQUENT PVCS NO SIGNIFICANT ST CHANGES CONCLUSION UNREMARKABLE LEXISCAN STRESS TEST FREQUENT PVCS AFTER LEXISCAN ADMINISTRATION MYOVIEW IMAGES ARE REPORTED SEPARATELY Test Summary REST 03:23 . . 55 . 169/ 79 . . Stage 1 . . . . . . . Myoview Injected Stage 1 01:00 . . 65 . . . . Stage 2 01:00 . . 74 . . . . Stage 3 01:00 . . 70 . 147/ 75 . . Stage 4 01:00 . . 68 . 130/ 68 . . Stage 4 01:52 . . 73 . 130/ 68 . Stop exercise at 04:52 RECOVERY 01:00 . . 64 . 133/ 78 . . RECOVERY 02:00 . . 68 . 145/ 77 . . RECOVERY 03:00 . . 68 . 143/ 81 . . RECOVERY 04:00 . . 64 . 143/ 81 . . RECOVERY 04:15 . . 67 . 138/ 81 . . Electronically signed by : Ayala Lozada MD 02/13/2023 19:50:25
--- NOTE | 2023-02-05 11:12 | NM_ITS ---
APPROVED REPORT Exam: Nuclear Stress Test Indication: CAD, HTN, High cholesterol, Family history, SOB, Fatigue Patient Location: Outpatient Stress Tech: Asmita Linton [place] Tech:Leeann MengEVON RT(R)(N) Ht: 5 ft 4 in Wt: 170 lbs Bra Size: 38C HR: 55 bpm BP: 169/79 mmHg BSA: 1.83 m2 Rhythm: NSR, PVCs TID: 1.06 BMI: 29.1 History: CAD, HTN, High cholesterol, Family history, SOB, Fatigue Procedure: Patient received 0.4 mg of intravenous Lexiscan, resting heart rate 55 bpm, resting blood pressure 169/79 mmHg, with Lexiscan maximum heart rate achieved was 79 bpm which is % of the maximum predicted heart rate and blood pressure was 169/79 mmHg. With Lexiscan, patient denied any complaint of chest pain. Cardiac Stress and Resting SPECT Images: Cardiac Stress and Resting SPECT images were obtained using technetium 99m Myoview 29.4 mCi stress and 9.83 mCi at rest. Resting and stress imaging in supine and prone positions demonstrate no evidence of fixed or reversible perfusion defects. Gated imaging demonstrates normal global and regional LV systolic function. LVEF is calculated at 59%. Conclusion: No evidence of fixed or reversible perfusion defects. Gated imaging demonstrates normal global and regional LV systolic function. LVEF is calculated at 59%. Electronically signed by : Ayala Lozada MD 02/13/2023 19:52:02
== END ==
LOC: RAD 11:12
PROVIDERS: PCP Internal Medicine Adolescent Medicine; Visit Provider Nurse Practitioner Family
DX: E03.9 Hypothyroidism, unspecified (principal); E78.5 Hyperlipidemia, unspecified; I10 Essential (primary) hypertension; I25.10 Atherosclerotic heart disease of native coronary artery without angina pectoris; I48.91 Unspecified atrial fibrillation; I51.9 Heart disease, unspecified; R53.83 Other fatigue; R06.09 Other forms of dyspnea
CPT/HCPCS: 78452; 93017; A9502; J2785

== ENCOUNTER → 2023-02-19 10:09 | Outpatient (CLI) | payer MEDICARE, SELFPAY ==
--- NOTE | 2023-02-19 10:14 | CA_ITS ---
APPROVED REPORT EXAM: Comprehensive 2D, Doppler, and color-flow Echocardiogram Lumber Piler Operator: Kiah Orantes RCS, RVS Ht: 5 ft 4 in Wt: 176lbs BSA: 1.85 HR: 50 bpm BP: 155/80 mmHg Rhythm: Bradycardia Indications: fatigue, dyspnea, afib, CAD, 2D Dimensions Aortic Root 2.85 cm F: 2.7 - 3.3 LA Volume 68.60 mL Left Atrium 3.38 cm F: 2.7 - 3.8 LA Volume Index 37.08 mL/m2 (M/F) 16-34 LVOT 1.94 cm (M/F) 1.5-2.5 M-Mode Dimensions RVDd 2.83 cm (0.9-2.6) LA Diam 3.80 cm (1.9-4.0) LVDd 5.08 cm (3.5-5.7) Ao Diam 2.65 cm (2.0-3.7) LVDs 3.43 cm (3.5-5.7) IVSd 1.25 cm (0.6-1.1) PWd 0.97 cm (0.6-1.1) EF (Teich) 60.50% EPSs 0.68 cm FS 32.50% EDV (Teich) 122.70 mL TAPSE 2.58 (<1.7) ESV (Teich) 48.50 mL LV Diastology E Decel Time 357.00 (160-240 msec) E/A Ratio 0.70 MED E' 6.10 (< 7 cm/sec) MED A' 7.60 cm/s E'/MED E' Ratio 7.43 (>14) LAT E' 6.60 (<10 cm/sec) LAT A' 9.40 cm/s E/LAT E' Ratio 6.86 (>14) Aortic Valve LVOT Max 92.00 (70-110 cm/s) LVOT VTI 21.56 cm AoV Peak Bert. 152.00 (50-130 cm/s) AO Peak GR. 9.20 mmHg AO Mean GR. 4.60 (<5 mmHg) AO VTI 33.17 (18-25 cm) MADDY (VTI) 1.92 (2.5-4.5 cm2) Mitral Valve MV A Velocity 64.00 (40-130 cm/s) E/A Ratio 0.70 MV Decel. Time 357.00 (160-240 ms) Pulmonary Valve PV Peak Velocity 70.00 (50-150 cm/s) OR End VMAX 138.00 cm/s Tricuspid Valve TR P. Velocity 244.00 cm/s RAP Estimate 10.00 mmHg RVSP 33.80 mmHg Left Ventricle The left ventricle is normal size. The left ventricular systolic function is normal. The left ventricular ejection fraction is within the normal range. There is normal left ventricular wall thickness. There is mild hypokinesis of the inferior and inferoseptal LV ritchie. Diastolic function is indeterminate. LVEF is 55-60%. Right Ventricle The right ventricle is normal size. The right ventricular systolic function is normal. Atria The left atrium is mildly dilated. The right atrium size is mildly dilated. There is no Doppler evidence of interatrial shunt. Aortic Valve The aortic valve is mildly thickened. The aortic valve is trileaflet. There is no aortic valvular stenosis. No aortic regurgitation is present. Mitral Valve The mitral valve is normal in structure. No evidence of mitral valve stenosis. Mild mitral regurgitation. Tricuspid Valve The tricuspid valve leaflets are thin and pliable. Moderate tricuspid regurgitation. RVSP is 25-30 mmHg. Pulmonic Valve The pulmonary valve is normal in structure. Trace pulmonic regurgitation. Great Vessels The aortic root is normal in size. The ascending aorta is normal in size. IVC is normal in size and collapses >50% with inspiration. Pericardium There is no pericardial effusion. Other Information Study Quality: Fair Conclusion Normal biventricular systolic function. Mild biatrial dilatation. Mild MR. Moderate TR. RVSP is 25-30 mmHg. Electronically signed by : Ayala Lozada MD 02/21/2023 23:03:08
== END ==
PROVIDERS: PCP Internal Medicine Adolescent Medicine; Visit Provider Nurse Practitioner Family
DX: E03.9 Hypothyroidism, unspecified (principal); E78.5 Hyperlipidemia, unspecified; I10 Essential (primary) hypertension; I25.10 Atherosclerotic heart disease of native coronary artery without angina pectoris; I48.91 Unspecified atrial fibrillation; I51.9 Heart disease, unspecified; R06.00 Dyspnea, unspecified
CPT/HCPCS: 93306

== ENCOUNTER → 2023-03-18 13:50 | Outpatient (CLI) | payer MEDICARE, SELFPAY ==
[2023-03-18 14:23] LABS: Chloride 107 mmol/L (98-107)
[2023-03-18 14:24] LABS: Potassium 4.5 mmoL/L (3.5-5.1); Sodium 141 mmol/L (136-145)
[2023-03-18 14:27] LABS: Anion Gap 10.5 mEq/L (5-15); Blood Urea Nitrogen 16 mg/dl (7-17); Calcium 9.5 mg/dl (8.4-10.2); Carbon Dioxide 28 mmol/L (22.0-30.0); Estimated Glomerular Filt Rate 69 ml/min (>60); GFR (African American) 84 ML/MIN (>60); Glucose 98 mg/dl (74-100)
== END ==
PROVIDERS: PCP Internal Medicine Adolescent Medicine; Visit Provider Nurse Practitioner
DX: E78.5 Hyperlipidemia, unspecified (principal); I48.91 Unspecified atrial fibrillation; Z86.39 Personal history of other endocrine, nutritional and metabolic disease
CPT/HCPCS: 36415; 80048

== ENCOUNTER 2023-06-18 13:39 | Outpatient (CLI) | payer MEDICARE, SELFPAY ==
[2023-06-18 14:14] LABS: Basophils # 0.1 K/mm3 (0-0.2); Basophils % 1.1 % (0.1-2.0); Eosinophils # 0.2 K/mm3 (0.0-0.4); Eosinophils % 4.2 % (0.1-12.0); Hemoglobin 14.9 g/dL (12.2-16.2); Lymphocytes # 1.3 K/mm3 (0.7-4.5); Lymphocytes % 27.1 % (10-50); Mean Corpuscular HGB Conc 33.1 g/dL (31.8-35.4); Mean Corpuscular Hemoglobin 30.6 pg (27.0-31.2); Mean Corpuscular Volume 92.5 fl (81-99); Mean Platelet Volume 7.7 fl (7.4-10.4); Monocytes # 0.5 K/mm3 (0.1-1.0); Neutrophils # 2.8 K/mm3 (1.8-7.8); Neutrophils % 56.7 % (37.0-80.0); Platelet Count 195 K/mm3 (142-424); Red Blood Count 4.86 M/mm3 (4.20-5.40); Red Cell Distribution Width 14.1 % (11.5-17.5); White Blood Count 4.9 K/mm3 (4.8-10.8)
[2023-06-18 14:27] LABS: Alanine Aminotransferase 29 U/L (12-78); Albumin Level 4.4 g/dl (3.5-5.0); Alkaline Phosphatase 73 U/L (38-126); Anion Gap 13.3 mEq/L (5-15); Aspartate Amino Transferase 46 U/L (14-36); Bilirubin,Indirect 0.7 mg/dL (0.0-0.9); Bilirubin,Total 0.7 mg/dl (0.2-1.3); Bilirubin,Unconjugated 0.8 mg/dL (0.0-1.1); Blood Urea Nitrogen 25 mg/dl (7-17); Calcium 9.9 mg/dl (8.4-10.2); Carbon Dioxide 26 mmol/L (22.0-30.0); Chloride 105 mmol/L (98-107); Chol/HDL Ratio 2.9 (1-3.5); Cholesterol 144 mg/dl (140-200); Estimated Glomerular Filt Rate 61 ml/min (>60); GFR (African American) 73 ML/MIN (>60); Glucose 94 mg/dl (74-100); HDL Cholesterol 50 mg/dl (40-60); Magnesium 2.3 mg/dl (1.6-2.3); Potassium 4.3 mmoL/L (3.5-5.1); Sodium 140 mmol/L (136-145); Total Protein,Serum 7.2 g/dl (6.3-8.2); Triglycerides 181 mg/dl (30-150); VLDL Cholesterol 36 mg/dL (0-40)
[2023-06-18 14:39] LABS: Direct LDL Cholesterol 64.86 mg/dL (100-129)
[2023-06-18 14:43] LABS: Free T4 (Free Thyroxine) 1.08 ng/dl (0.78-2.19)
[2023-06-18 14:57] LABS: Thyroid Stimulating Hormone 1.24 uIU/mL (0.465-4.68)
== END 2023-06-18 23:59 ==
LOC: LAB 13:40
PROVIDERS: PCP Internal Medicine Adolescent Medicine; Visit Provider Nurse Practitioner
DX: E78.5 Hyperlipidemia, unspecified (principal); I25.10 Atherosclerotic heart disease of native coronary artery without angina pectoris; I48.91 Unspecified atrial fibrillation; I51.9 Heart disease, unspecified; M54.9 Dorsalgia, unspecified
CPT/HCPCS: 36415; 80048; 80061; 80076; 83735; 84439; 84443; 85025

== ENCOUNTER 2023-12-24 13:48 | Outpatient (CLI) | payer MEDICARE, SELFPAY ==
[2023-12-24 14:09] LABS: Basophils # 0.1 K/mm3 (0-0.2); Basophils % 0.8 % (0.1-2.0); Eosinophils # 0.3 K/mm3 (0.0-0.4); Eosinophils % 4.1 % (0.1-12.0); Hematocrit 42.5 % (37.0-47.0); Hemoglobin 13.8 g/dL (12.2-16.2); Lymphocytes # 1.5 K/mm3 (0.7-4.5); Lymphocytes % 21.6 % (10-50); Mean Corpuscular HGB Conc 32.5 g/dL (31.8-35.4); Mean Corpuscular Hemoglobin 30.3 pg (27.0-31.2); Mean Corpuscular Volume 93.3 fl (81-99); Monocytes # 0.5 K/mm3 (0.1-1.0); Monocytes % 6.9 % (1.7-9.3); Neutrophils # 4.7 K/mm3 (1.8-7.8); Neutrophils % 66.7 % (37.0-80.0); Platelet Count 267 K/mm3 (142-424); Red Blood Count 4.56 M/mm3 (4.20-5.40); Red Cell Distribution Width 14.3 % (11.5-17.5); White Blood Count 7.1 K/mm3 (4.8-10.8)
[2023-12-24 14:45] LABS: Alanine Aminotransferase 25 U/L (12-78); Albumin Level 4.1 g/dl (3.5-5.0); Alkaline Phosphatase 70 U/L (38-126); Anion Gap 13.4 mEq/L (5-15); Aspartate Amino Transferase 32 U/L (14-36); Bilirubin,Indirect 0.7 mg/dL (0.0-0.9); Bilirubin,Total 0.7 mg/dl (0.2-1.3); Bilirubin,Unconjugated 0.8 mg/dL (0.0-1.1); Blood Urea Nitrogen 25 mg/dl (7-17); Calcium 9.5 mg/dl (8.4-10.2); Carbon Dioxide 20 mmol/L (22.0-30.0); Chloride 111 mmol/L (98-107); Chol/HDL Ratio 2.5 (1-3.5); Cholesterol 139 mg/dl (140-200); Estimated Glomerular Filt Rate 81 ml/min (>60); GFR (African American) 98 ML/MIN (>60); Glucose 103 mg/dl (74-100); HDL Cholesterol 56 mg/dl (40-60); Magnesium 2.1 mg/dl (1.6-2.3); Potassium 4.4 mmoL/L (3.5-5.1); Sodium 140 mmol/L (136-145); Total Protein,Serum 6.9 g/dl (6.3-8.2); Triglycerides 151 mg/dl (30-150); VLDL Cholesterol 30 mg/dL (0-40)
[2023-12-24 14:56] LABS: Direct LDL Cholesterol 54.79 mg/dL (100-129)
[2023-12-24 14:59] LABS: Free T4 (Free Thyroxine) 1.03 ng/dl (0.78-2.19)
[2023-12-24 15:16] LABS: Thyroid Stimulating Hormone 1.07 uIU/mL (0.465-4.68)
== END 2023-12-24 23:59 | disposition home or self-care (01) ==
LOC: LAB 13:49
PROVIDERS: PCP Internal Medicine Adolescent Medicine; Visit Provider Nurse Practitioner
DX: E78.5 Hyperlipidemia, unspecified (principal); I51.9 Heart disease, unspecified; I25.10 Atherosclerotic heart disease of native coronary artery without angina pectoris; I48.91 Unspecified atrial fibrillation; Z86.39 Personal history of other endocrine, nutritional and metabolic disease; I48.0 Paroxysmal atrial fibrillation
CPT/HCPCS: 36415; 80048; 80061; 80076; 83735; 84439; 84443; 85025

== ENCOUNTER 2024-06-23 14:42 | Outpatient (CLI) | payer MEDICARE, SELFPAY ==
--- NOTE | 2024-06-23 14:47 | XR_ITS ---
FINAL REPORT CLINICAL HISTORY: .POSTERIOR PAIN, UNDER THE LEFT SCAPULA FOR 1 YEAR. NKI COMPARISON: None FINDINGS: 3 views of the left ribs were obtained. There is no displaced, acute fracture identified. The visualized lungs are clear. No pneumothorax is identified. IMPRESSION: No displaced rib fracture or pneumothorax identified. Reviewed, Interpreted and Dictated by David Alvarez MD Transcribed by Monica Hoff Authenticated and [facility]
--- NOTE | 2024-06-23 14:47 | XR_ITS ---
FINAL REPORT CLINICAL HISTORY: .POSTERIOR PAIN, UNDER THE LEFT SCAPULA FOR 1 YEAR. NKI COMPARISON: None FINDINGS: Four views of the thoracic spine were obtained. There is no fracture present. The vertebrae are normal in height. There is no malalignment. The disc spaces are preserved. IMPRESSION: No acute process. Reviewed, Interpreted and Dictated by David Alvarez MD Transcribed by Monica Hoff Authenticated and [facility]
--- NOTE | 2024-06-23 14:47 | XR_ITS ---
FINAL REPORT TECHNIQUE: Chest PA & Lateral CLINICAL HISTORY: POSTERIOR PAIN, UNDER THE LEFT SCAPULA FOR 1 YEAR. NKI COMPARISON: 05/04/2020 FINDINGS: 2 views of the chest were performed. The heart size is normal. The mediastinum is within normal limits. There is no acute cardiopulmonary process. There are no pleural effusions. There is no pneumothorax. The bony thorax appears intact. IMPRESSION: No acute cardiopulmonary process. Reviewed, Interpreted and Dictated by David Alvarez MD Transcribed by Monica Hoff Authenticated and [facility]
== END 2024-06-23 23:59 | disposition home or self-care (01) ==
LOC: RAD 14:43
PROVIDERS: PCP Internal Medicine Adolescent Medicine; Visit Provider Internal Medicine Adolescent Medicine
DX: M54.6 Pain in thoracic spine (principal)
CPT/HCPCS: 71046; 71100; 72072

== ENCOUNTER 2024-06-30 11:35 | Outpatient (CLI) | payer MEDICARE, SELFPAY ==
--- NOTE | 2024-06-30 | CA_ITS ---
APPROVED REPORT Exam: Pharmacologic Technologist: Asmita Linton Ht: 5 ft 4 in Wt: 156 lbs BSA: 1.76 m2 HR: 52 bpm BP: 145/74 mmHg Medical History Medical History: Hyperlipidemia Medications: Vit D3, Clopidogrel, Coenzyme Q10, Empagliflozin, Levocetirizine, Rivaroxaban, Rosuvastatin, Spironolactone, Metoprolol Tartrate, Multivitamin Allergies: Ranexa Cardiac Risk Factors: Hyperlipidemia Stress Test Details Test: Lexiscan HR Resting HR: 52 bpm Max Heart Rate (APMHR): 141 bpm Target HR (85% APMHR): 120 bpm Recovery HR: 66 bpm BP Resting BP: 145.0/74.0 mmHg Max BP: 145.0/74.0 mmHg Recovery BP: 120.0/66.0 mmHg ECG Stress ECG Conclusion Pt had soa and felt flushed, resolved after 4 minutes Electronically signed by : Ayala Lozada MD 07/04/2024 00:20:31
--- NOTE | 2024-06-30 11:36 | NM_ITS ---
APPROVED REPORT Exam: Nuclear Stress Test Indication: Fatigue, HTN, High cholesterol, Family history Patient Location: Outpatient Stress Tech: Asmita Linton MT Tech:Leeann Meng FRANNYAva RT(R)(N) Ht: 5 ft 4 in Wt: 153 lbs Bra Size: C HR: 52 bpm BP: 145/74 mmHg BSA: 1.75 m2 TID: 1.21 BMI: 26.2 History: Fatigue, HTN, High cholesterol, Family history Procedure: Patient received 0.4 mg of intravenous Lexiscan, resting heart rate 52 bpm, resting blood pressure 145/74 mmHg, with Lexiscan maximum heart rate achieved was 73 bpm which is % of the maximum predicted heart rate and blood pressure was 120/66 mmHg. With Lexiscan, patient denied any complaint of chest pain. Cardiac Stress and Resting SPECT Images: Cardiac Stress and Resting SPECT images were obtained using technetium 99m Myoview 29.6 mCi stress and 10.85 mCi at rest. Resting and stress imaging in supine and prone positions demonstrate no evidence of fixed or reversible perfusion defects. There is increase in transient ischemic dilatation ratio (TID 1.21), suggestive of possible multivessel disease or balanced ischemia. Gated imaging demonstrates normal global and regional LV systolic function. LVEF is calculated at 64%. Conclusion: No evidence of fixed or reversible perfusion defects. There is increase in transient ischemic dilatation ratio (TID 1.21), suggestive of possible multivessel disease or balanced ischemia. Gated imaging demonstrates normal global and regional LV systolic function. LVEF is calculated at 64%. In the setting of presence of TID on nuclear stress testing with otherwise normal LV systolic function, further evaluation noninvasively with CCTA is suggested prior to proceeding with invasive coronary angiography, if clinically feasible and indicated. Electronically signed by : Ayala Lozada MD 07/04/2024 00:18:00
[2024-06-30] MEDS: REGADENOSON 0.4MG/5ML SYRINGE 0.4 MG IV (14:36)
[2024-06-30] MEDS: SODIUM CHLORIDE 0.9% 10ML SYR (RAD ONLY) 10 ML IV ×2 (14:36)
[2024-06-30] MEDS: ISOTOPE MYOVIEW (PER STUDY) 1 DOSE IV (14:36)
== END 2024-06-30 23:59 | disposition home or self-care (01) ==
LOC: RAD 11:36
PROVIDERS: PCP Internal Medicine Adolescent Medicine; Visit Provider Internal Medicine
DX: I20.89 Other forms of angina pectoris (principal)
CPT/HCPCS: 78452; 93017; 93018; A9502; J2785

== ENCOUNTER 2024-08-18 14:26 | Outpatient (CLI) | payer MEDICARE, SELFPAY | END 2024-08-18 23:59 | disposition home or self-care (01) | LOC: RT 14:27 | PROVIDERS: PCP Internal Medicine Adolescent Medicine; Visit Provider Internal Medicine | DX: I48.0 Paroxysmal atrial fibrillation (principal) | CPT/HCPCS: 93225; 93227 ==

== ENCOUNTER 2024-08-22 10:43 | Outpatient (CLI) | payer MEDICARE, SELFPAY | END 2024-08-22 23:59 | disposition home or self-care (01) | LOC: RT 10:44 | PROVIDERS: PCP Internal Medicine Adolescent Medicine; Visit Provider Internal Medicine | DX: I48.0 Paroxysmal atrial fibrillation (principal) | CPT/HCPCS: 93270 ==

== ENCOUNTER 2024-09-15 10:18 | Outpatient (CLI) | payer MEDICARE, SELFPAY ==
[2024-09-15 11:08] LABS: Basophils # 0.1 K/mm3 (0-0.2); Basophils % 0.8 % (0.1-2.0); Eosinophils # 0.3 Kmm3 (0.0-0.4); Eosinophils % 4.7 % (0.1-12.0); Hematocrit 39.6 % (37.0-47.0); Hemoglobin 12.9 g/dL (12.2-16.2); Lymphocytes # 1.2 K/mm3 (0.7-4.5); Mean Corpuscular HGB Conc 32.6 g/dL (31.8-35.4); Mean Corpuscular Hemoglobin 29.9 pg (27.0-31.2); Mean Corpuscular Volume 91.9 fl (81-99); Mean Platelet Volume 9.8 fl (7.4-10.4); Monocytes # 0.8 K/mm3 (0.1-1.0); Monocytes % 12.3 % (1.7-9.3); Neutrophils # 4.1 K/mm3 (1.8-7.8); Neutrophils % 63.9 % (37.0-80.0); Nucleated Red Blood Cells # 0 10^3/uL; Nucleated Red Blood Cells % 0 %; Platelet Count 225 K/mm3 (142-424); Red Blood Count 4.31 M/mm3 (4.20-5.40); Red Cell Distribution Width 13.4 % (11.5-17.5); Red Cell Distribution Width-SD 46.1 fL; White Blood Count 6.4 K/mm3 (4.8-10.8)
[2024-09-15 11:33] LABS: Anion Gap 10.2 mEq/L (5-15); Blood Urea Nitrogen 29 mg/dl (7-17); Calcium 9.7 mg/dl (8.4-10.2); Carbon Dioxide 24 mmol/L (22.0-30.0); Chloride 108 mmol/L (98-107); Estimated Glomerular Filt Rate 69 ml/min (>60); GFR (African American) 84 ML/MIN (>60); Glucose 80 mg/dl (74-100); Potassium 5.2 mmoL/L (3.5-5.1); Sodium 137 mmol/L (136-145)
[2024-09-15 11:46] LABS: Hemoglobin A1C 5.7 % (4.0-6.0)
[2024-09-15 12:05] LABS: Thyroid Stimulating Hormone 1.06 uIU/mL (0.465-4.68)
== END 2024-09-15 23:59 | disposition home or self-care (01) ==
LOC: LAB 10:20
PROVIDERS: PCP Nurse Practitioner Family; Visit Provider Nurse Practitioner Family
DX: Z13.1 Encounter for screening for diabetes mellitus (principal); N39.0 Urinary tract infection, site not specified; R81 Glycosuria
CPT/HCPCS: 36415; 80048; 83036; 84443; 85025

== ENCOUNTER 2025-03-18 11:08 | Outpatient (CLI) | payer MEDICARE, SELFPAY | END 2025-03-18 23:59 | disposition home or self-care (01) | LOC: LAB 11:09 | PROVIDERS: PCP Nurse Practitioner Family; Visit Provider Nurse Practitioner Family | DX: R30.0 Dysuria (principal) | CPT/HCPCS: 87086; 87088; 87186 ==